=== PATIENT | female | born 1940 | race Caucasian/White ===

== ENCOUNTER 2019-06-26 02:39 | Inpatient (IN) ==
[2019-06-26] MEDS ORDERED: Nitroglycerin 0.4 MG TAB.SUBL SL PRN (02:44)
[2019-06-26] MEDS: Aspirin 81 MG TAB.CHEW PO ONE ×2 (03:01→06:16)
[2019-06-26 03:34] LABS: Basophils # 0.1 K/mcL (0.0-0.2); Basophils % 0.4 %; Eosinophils % 0.3 %; Hematocrit 40.4 % (35.3-44.9); Hemoglobin 13.1 g/dL (11.5-15.4); Immature Granulocytes % 0.4 % (0-4); Lymphocytes # 0.9 K/mcL (0.6-4.6); Lymphocytes % 7.8 %; Mean Corpuscular HGB Conc 32.4 g/dL (31.6-35.5); Mean Corpuscular Hemoglobin 27.8 pg (28.0-33.3); Mean Corpuscular Volume 85.6 fL (83.0-100.0); Mean Platelet Volume 10.3 fL (9.4-12.4); Monocytes # 0.4 K/mcL (0.0-1.3); Monocytes % 3.2 %; Neutrophils # 10.3 K/mcL (1.6-8.9); Platelet Count 340 K/mcL (140-400); Red Blood Count 4.72 M/mcL (3.82-4.97); Segmented Neutrophils % 87.9 %; White Blood Count 11.7 K/mcL (4.3-11.1)
[2019-06-26 03:39] LABS: Prothrombin Time 11.2 Seconds (9.4-12.1)
[2019-06-26 03:42] LABS: Activated Partial Thrombo Time 54.2 Seconds (26.0-36.0)
[2019-06-26 03:55] LABS: Calcium 9.9 mg/dL (8.6-10.3); Potassium 4.8 mEq/L (3.5-5.1)
[2019-06-26 04:08] LABS: Troponin I 0.06 ng/mL (< 0.04)
[2019-06-26] MEDS ORDERED: 0.9 % Sodium Chloride 1,000 ML IVC ONE (04:10)
[2019-06-26] MEDS ORDERED: Ondansetron ODT 4 MG TAB.RAPDIS SL PRN (07:56)
[2019-06-26] MEDS ORDERED: Ondansetron 4 MG/2 ML VIAL IVP PRN (07:56)
[2019-06-26] MEDS ORDERED: Naloxone 0.4 MG/ML INJ IVP PRN (07:56)
[2019-06-26] MEDS ORDERED: *HR* Heparin 5,000 UNIT/ML VIAL IVP ONE (12:17)
[2019-06-26] MEDS ORDERED: *HR* Heparin 5,000 UNIT/ML VIAL IVP PRN ×2 (12:17)
[2019-06-26] MEDS ORDERED: *HR* HYDROcodone/Acet 5/325 mg TABLET PO PRN (12:19)
[2019-06-26] MEDS ORDERED: Ringers Solution, Lactated 1,000 ML IVC ONE (12:21)
[2019-06-26] MEDS ORDERED: IRBESARTAN 300 MG PO SCH (12:30)
[2019-06-26] MEDS ORDERED: D5% in Water 1,000 ML IVC PRN (12:32)
[2019-06-26] MEDS ORDERED: Dextrose Gel 15 GM/37.5 ML TUBE PO PRN (12:32)
[2019-06-26] MEDS: Insulin LISPRO 300 UNITS/3 ML VIAL SQ SCH ×3 (13:08→21:43)
[2019-06-26 13:23] LABS: Hematocrit 35.9 % (35.3-44.9); Hemoglobin 11.7 g/dL (11.5-15.4); Mean Corpuscular HGB Conc 32.6 g/dL (31.6-35.5); Mean Corpuscular Hemoglobin 27.5 pg (28.0-33.3); Mean Corpuscular Volume 84.5 fL (83.0-100.0); Mean Platelet Volume 10.5 fL (9.4-12.4); Platelet Count 317 K/mcL (140-400); Red Blood Count 4.25 M/mcL (3.82-4.97); White Blood Count 8.4 K/mcL (4.3-11.1)
[2019-06-26 13:29] LABS: Prothrombin Time 11.3 Seconds (9.4-12.1)
[2019-06-26] MEDS: Aspirin 81 MG TAB.CHEW PO SCH (13:40)
[2019-06-26] MEDS: Heparin 25,000 UNIT/250 ML D5W 25,000 UNIT/250 ML IV.SOLN IVC SCH (13:41)
[2019-06-26 13:42] LABS: Chol/HDL Ratio 3.7 (0-4.9)
[2019-06-27 01:55] LABS: Basophils # 0.1 K/mcL (0.0-0.2); Basophils % 0.6 %; Eosinophils # 0.2 K/mcL (0.0-0.6); Eosinophils % 2.3 %; Hematocrit 36.2 % (35.3-44.9); Hemoglobin 11.3 g/dL (11.5-15.4); Immature Granulocytes % 0.4 % (0-4); Lymphocytes # 2.2 K/mcL (0.6-4.6); Lymphocytes % 26.1 %; Mean Corpuscular HGB Conc 31.2 g/dL (31.6-35.5); Mean Corpuscular Hemoglobin 27.2 pg (28.0-33.3); Mean Platelet Volume 10.9 fL (9.4-12.4); Monocytes # 0.6 K/mcL (0.0-1.3); Monocytes % 7.2 %; Neutrophils # 5.2 K/mcL (1.6-8.9); Platelet Count 295 K/mcL (140-400); Red Blood Count 4.16 M/mcL (3.82-4.97); Red Cell Distribution Width 15.1 % (11.5-14.5); Segmented Neutrophils % 63.4 %; White Blood Count 8.2 K/mcL (4.3-11.1)
[2019-06-27 02:15] LABS: Calcium 9.4 mg/dL (8.6-10.3)
[2019-06-27] MEDS ORDERED: Ringers Solution, Lactated 500 ML IVC ONE ×2 (07:36→17:45)
[2019-06-27] MEDS: Insulin LISPRO 300 UNITS/3 ML VIAL SQ SCH ×4 (08:13→21:40)
[2019-06-27] MEDS: amLODIPine 5 MG TABLET PO SCH (08:19)
[2019-06-27] MEDS: Aspirin 81 MG TAB.CHEW PO SCH (08:20)
[2019-06-27 08:32] LABS: Estimated Average Glucose 189 mg/dl
[2019-06-27] MEDS: Heparin 25,000 UNIT/250 ML D5W 25,000 UNIT/250 ML IV.SOLN IVC SCH (10:04)
[2019-06-27] MEDS ORDERED: Ringers Solution, Lactated 1,000 ML IVC ONE (17:48)
[2019-06-27 22:03] LABS: Basophils # 0.1 K/mcL (0.0-0.2); Basophils % 0.5 %; Eosinophils # 0.2 K/mcL (0.0-0.6); Eosinophils % 1.6 %; Hematocrit 35.5 % (35.3-44.9); Hemoglobin 11.5 g/dL (11.5-15.4); Immature Granulocytes % 0.5 % (0-4); Lymphocytes # 1.8 K/mcL (0.6-4.6); Lymphocytes % 16.5 %; Mean Corpuscular HGB Conc 32.4 g/dL (31.6-35.5); Mean Corpuscular Hemoglobin 27.3 pg (28.0-33.3); Mean Corpuscular Volume 84.1 fL (83.0-100.0); Mean Platelet Volume 10.6 fL (9.4-12.4); Monocytes # 0.6 K/mcL (0.0-1.3); Monocytes % 5.6 %; Neutrophils # 8.3 K/mcL (1.6-8.9); Platelet Count 325 K/mcL (140-400); Red Blood Count 4.22 M/mcL (3.82-4.97); Segmented Neutrophils % 75.3 %; White Blood Count 11.1 K/mcL (4.3-11.1)
[2019-06-27] MEDS ORDERED: Ringers Solution, Lactated 1,000 ML ONE (23:41)
[2019-06-27] MEDS ORDERED: Ringers Solution, Lactated 1,000 ML IVC SCH (23:45)
[2019-06-28 06:48] LABS: Basophils # 0.1 K/mcL (0.0-0.2); Basophils % 0.7 %; Eosinophils # 0.2 K/mcL (0.0-0.6); Eosinophils % 2.2 %; Hemoglobin 11.3 g/dL (11.5-15.4); Immature Granulocytes % 0.3 % (0-4); Lymphocytes # 1.9 K/mcL (0.6-4.6); Lymphocytes % 19.7 %; Mean Corpuscular HGB Conc 31.4 g/dL (31.6-35.5); Mean Corpuscular Hemoglobin 27.4 pg (28.0-33.3); Mean Corpuscular Volume 87.4 fL (83.0-100.0); Mean Platelet Volume 10.9 fL (9.4-12.4); Monocytes # 0.6 K/mcL (0.0-1.3); Monocytes % 6.3 %; Platelet Count 260 K/mcL (140-400); Red Blood Count 4.12 M/mcL (3.82-4.97); Red Cell Distribution Width 15.3 % (11.5-14.5); Segmented Neutrophils % 70.8 %; White Blood Count 9.8 K/mcL (4.3-11.1)
[2019-06-28 07:12] LABS: BUN/Creatinine Ratio 22 (6-26); Blood Urea Nitrogen 21 mg/dL (8-23); Carbon Dioxide 25 mEq/L (23-29); Chloride 104 mEq/L (98-107); Glucose 124 mg/dL (70-105); Osmolality,Calculated 294 (280-300); Sodium 140 mEq/L (136-145); eGFR For African Americans > 60 (> 60); eGFR For Non-African Americans 57 (> 60)
[2019-06-28] MEDS: amLODIPine 5 MG TABLET PO SCH (10:00)
[2019-06-28] MEDS: Insulin LISPRO 300 UNITS/3 ML VIAL SQ SCH ×4 (10:00→21:27)
[2019-06-28] MEDS: Aspirin 81 MG TAB.CHEW PO SCH (10:00)
[2019-06-28] MEDS: Heparin 25,000 UNIT/250 ML D5W 25,000 UNIT/250 ML IV.SOLN IVC SCH (12:36)
[2019-06-28] MEDS ORDERED: Heparin 1,000 UNITS/500 mL 500 ML ONE (13:38)
[2019-06-28] MEDS ORDERED: 0.9 % Sodium Chloride 1,000 ML ONE (13:38)
[2019-06-28] MEDS ORDERED: *HR* Heparin 10,000 UNIT/10 ML VIAL ONE (13:38)
[2019-06-28] MEDS ORDERED: ISOVUE-370 200 ML INFUS..BTL ONE (13:39)
[2019-06-28] MEDS ORDERED: Nitroglycerin 1,000 MCG/10 ML VIAL IV ONE (13:39)
[2019-06-29 05:50] LABS: BUN/Creatinine Ratio 17 (6-26); Blood Urea Nitrogen 16 mg/dL (8-23); Calcium 9.1 mg/dL (8.6-10.3); Carbon Dioxide 31 mEq/L (23-29); Chloride 104 mEq/L (98-107); Glucose 168 mg/dL (70-105); Osmolality,Calculated 299 (280-300); Potassium 3.7 mEq/L (3.5-5.1); Sodium 142 mEq/L (136-145); eGFR For African Americans > 60 (> 60); eGFR For Non-African Americans 57 (> 60)
[2019-06-29 08:56] LABS: Hematocrit 32.4 % (35.3-44.9); Hemoglobin 10.7 g/dL (11.5-15.4); Mean Corpuscular Hemoglobin 27.9 pg (28.0-33.3); Mean Corpuscular Volume 84.6 fL (83.0-100.0); Mean Platelet Volume 10.6 fL (9.4-12.4); Platelet Count 282 K/mcL (140-400); Red Blood Count 3.83 M/mcL (3.82-4.97); Red Cell Distribution Width 15.1 % (11.5-14.5); White Blood Count 8.4 K/mcL (4.3-11.1)
[2019-06-29] MEDS: Aspirin 81 MG TAB.CHEW PO SCH (09:42)
[2019-06-29] MEDS: amLODIPine 5 MG TABLET PO SCH (09:42)
[2019-06-29] MEDS: Insulin LISPRO 300 UNITS/3 ML VIAL SQ SCH ×4 (09:43→20:50)
[2019-06-29] MEDS ORDERED: *HR* Heparin 10,000 UNIT/10 ML VIAL ONE ×2 (11:37→12:57)
[2019-06-29] MEDS ORDERED: ISOVUE-370 200 ML INFUS..BTL ONE (11:38)
[2019-06-29] MEDS ORDERED: Heparin 1,000 UNITS/500 mL 500 ML ONE (11:38)
[2019-06-29] MEDS ORDERED: Nitroglycerin 1,000 MCG/10 ML VIAL IV ONE ×2 (11:38→11:41)
[2019-06-29] MEDS ORDERED: 0.9 % Sodium Chloride 1,000 ML ONE (11:38)
[2019-06-29] MEDS ORDERED: 0.9 % Sodium Chloride 500 ML IVC ONE (11:42)
[2019-06-29] MEDS ORDERED: *HR* FentaNYL (PF) 100 MCG/2 ML VIAL ONE (11:50)
[2019-06-29] MEDS ORDERED: Verapamil 5 MG/2 ML VIAL ONE (11:50)
[2019-06-29] MEDS ORDERED: *HR* Midazolam HCl 2 MG/2 ML VIAL ONE (11:50)
[2019-06-30 06:44] LABS: BUN/Creatinine Ratio 20 (6-26); Blood Urea Nitrogen 19 mg/dL (8-23); Calcium 8.7 mg/dL (8.6-10.3); Carbon Dioxide 28 mEq/L (23-29); Chloride 104 mEq/L (98-107); Glucose 175 mg/dL (70-105); Osmolality,Calculated 301 (280-300); Potassium 3.8 mEq/L (3.5-5.1); Sodium 142 mEq/L (136-145); eGFR For African Americans > 60 (> 60); eGFR For Non-African Americans 57 (> 60)
[2019-06-30 07:36] VITALS: BP 127/67
[2019-06-30] MEDS: Insulin LISPRO 300 UNITS/3 ML VIAL SQ SCH (09:46)
[2019-06-30] MEDS: Aspirin 81 MG TAB.CHEW PO SCH (09:46)
[2019-06-30] MEDS: amLODIPine 5 MG TABLET PO SCH (09:46)
== END 2019-06-30 10:26 | disposition home or self-care (01) | DRG 246 ==
LOC: 2ANU 02:39 → EMEROOARM 02:39 → SUATTDRO 06:10 → 2ANU 06:29
PROVIDERS: ADMIT Family Medicine; ATTEND Internal Medicine

== ENCOUNTER 2019-08-09 11:02 | Inpatient (IN) ==
[2019-08-09 12:34] LABS: Basophils % 0.7 %; Eosinophils % 1.4 %; Hematocrit 26.5 % (35.3-44.9); Hemoglobin 8.5 g/dL (11.5-15.4); Immature Granulocytes % 0.3 % (0-4); Lymphocytes # 0.1 K/mcL (0.6-4.6); Lymphocytes % 2.7 %; Mean Corpuscular HGB Conc 32.1 g/dL (31.6-35.5); Mean Corpuscular Hemoglobin 27.4 pg (28.0-33.3); Mean Corpuscular Volume 85.5 fL (83.0-100.0); Mean Platelet Volume 11.3 fL (9.4-12.4); Monocytes # 0.2 K/mcL (0.0-1.3); Monocytes % 8.2 %; Neutrophils # 2.5 K/mcL (1.6-8.9); Platelet Count 129 K/mcL (140-400); Red Cell Distribution Width 17.2 % (11.5-14.5); Segmented Neutrophils % 86.7 %; White Blood Count 2.9 K/mcL (4.3-11.1)
[2019-08-09 13:02] LABS: BUN/Creatinine Ratio 28 (6-26); Blood Urea Nitrogen 45 mg/dL (8-23); Calcium 9.1 mg/dL (8.6-10.3); Carbon Dioxide 22 mEq/L (23-29); Chloride 112 mEq/L (98-107); Glucose 133 mg/dL (70-105); Osmolality,Calculated 309 (280-300); Potassium 4.9 mEq/L (3.5-5.1); Sodium 143 mEq/L (136-145); Troponin I < 0.03 ng/mL (< 0.04); eGFR For African Americans 38 (> 60); eGFR For Non-African Americans 31 (> 60)
[2019-08-09] MEDS ORDERED: Furosemide 40 MG/4 ML VIAL IVP ONE (13:35)
[2019-08-09] MEDS ORDERED: Naloxone 0.4 MG/ML INJ IVP PRN (15:20)
[2019-08-09] MEDS ORDERED: *HR* HYDROcodone/Acet 5/325 mg TABLET PO PRN (15:30)
[2019-08-09 16:16] LABS: INR 1.1; Prothrombin Time 12.9 Seconds (9.4-12.1)
[2019-08-09 16:24] LABS: Alanine Aminotransferase 24 Units/L (7-52); Albumin 3.4 g/dL (3.5-5.7); Albumin/Globulin Ratio 1.4 (1.1-2.2); Alkaline Phosphatase 80 Units/L (34-104); Aspartate Amino Transferase 34 Units/L (13-39); Bilirubin,Direct 0.1 mg/dL (0.0-0.2); Bilirubin,Indirect 0.3 mg/dL (0.0-1.0); Bilirubin,Total 0.4 mg/dL (0.3-1.0); Globulin 2.5 g/dL (2.4-3.5); Thyroid Stimulating Hormone 5.636 mcIU/mL (0.340-5.600); Total Protein 5.9 g/dL (6.4-8.9)
[2019-08-09] MEDS: Insulin LISPRO 300 UNITS/3 ML VIAL SQ SCH ×2 (18:40→21:35)
[2019-08-09] MEDS: *HR* Heparin 5,000 UNIT/ML VIAL SQ SCH (18:51)
[2019-08-09 19:25] LABS: Red Cell Distribution Width 17.1 % (11.5-14.5); Reticulocyte % 1.4 % (1.6-2.8)
[2019-08-09 19:26] LABS: Eosinophils # 0.1 K/mcL (0.0-0.6); Hematocrit 26.2 % (35.3-44.9); Hemoglobin 8.5 g/dL (11.5-15.4); Immature Reticulocyte % 11.7 % (11.0-38.0); Mean Corpuscular HGB Conc 32.4 g/dL (31.6-35.5); Mean Corpuscular Hemoglobin 27.2 pg (28.0-33.3); Mean Platelet Volume 11.5 fL (9.4-12.4); Monocytes # 0.2 K/mcL (0.0-1.3); Platelet Count 142 K/mcL (140-400); Red Blood Count 3.12 M/mcL (3.82-4.97); Retculocyte # 0.04 M/mcL (0.05-0.10); White Blood Count 1.9 K/mcL (4.3-11.1)
[2019-08-09 19:41] LABS: % Iron Saturation 18 % (15-50); Iron 59 mcg/dL (50-170); Lactate Dehydrogenase 583 Units/L (140-271); Transferrin 237 mg/dL (203-362)
[2019-08-09 19:55] LABS: Anisocytosis 1+ (Not Present); Microcytosis Present (Not Present); Neutrophils # 1.6 K/mcL (1.6-8.9); Platelet Estimate Normal (Normal); Poikilocytosis 1+ (Not Present)
[2019-08-09 19:59] LABS: Ferritin 303 ng/mL (10-120)
[2019-08-09 20:09] LABS: Folate > 22.3 ng/mL (3.0-16.0); Vitamin B12 674 pg/mL (250-1100)
[2019-08-10 02:52] LABS: Eosinophils # 0.1 K/mcL (0.0-0.6); Eosinophils % 2.9 %; Hematocrit 24.1 % (35.3-44.9); Hemoglobin 7.5 g/dL (11.5-15.4); Immature Granulocytes % 0.5 % (0-4); Lymphocytes # 0.1 K/mcL (0.6-4.6); Lymphocytes % 2.9 %; Mean Corpuscular HGB Conc 31.1 g/dL (31.6-35.5); Mean Corpuscular Hemoglobin 27.2 pg (28.0-33.3); Mean Corpuscular Volume 87.3 fL (83.0-100.0); Mean Platelet Volume 12.2 fL (9.4-12.4); Monocytes # 0.3 K/mcL (0.0-1.3); Monocytes % 12.4 %; Neutrophils # 1.7 K/mcL (1.6-8.9); Platelet Count 113 K/mcL (140-400); Red Blood Count 2.76 M/mcL (3.82-4.97); Red Cell Distribution Width 17.1 % (11.5-14.5); Segmented Neutrophils % 80.3 %; White Blood Count 2.1 K/mcL (4.3-11.1)
[2019-08-10 03:09] LABS: Calcium 8.8 mg/dL (8.6-10.3); Potassium 4.5 mEq/L (3.5-5.1)
[2019-08-10 03:52] LABS: Platelet Estimate Decreased (Normal)
[2019-08-10 03:53] LABS: Anisocytosis 1+ (Not Present); Microcytosis Present (Not Present)
[2019-08-10] MEDS: *HR* Heparin 5,000 UNIT/ML VIAL SQ SCH ×2 (05:34→16:45)
[2019-08-10] MEDS: Insulin LISPRO 300 UNITS/3 ML VIAL SQ SCH ×4 (07:58→20:28)
[2019-08-10] MEDS: Ascorbic Acid 500 MG TABLET PO SCH (08:48)
[2019-08-10] MEDS: amLODIPine 5 MG TABLET PO SCH (08:48)
[2019-08-10] MEDS: Aspirin 81 MG TAB.CHEW PO SCH (08:48)
[2019-08-10] MEDS: Furosemide 40 MG/4 ML VIAL IVP SCH ×2 (08:51→16:40)
[2019-08-10 16:52] LABS: Hematocrit 24.7 % (35.3-44.9); Hemoglobin 8.1 g/dL (11.5-15.4)
[2019-08-11] MEDS: *HR* Heparin 5,000 UNIT/ML VIAL SQ SCH ×2 (05:05→18:46)
[2019-08-11] MEDS: amLODIPine 5 MG TABLET PO SCH (08:49)
[2019-08-11] MEDS: Aspirin 81 MG TAB.CHEW PO SCH (08:49)
[2019-08-11] MEDS: Ascorbic Acid 500 MG TABLET PO SCH (08:50)
[2019-08-11] MEDS: Furosemide 40 MG/4 ML VIAL IVP SCH ×2 (08:50→18:45)
[2019-08-11] MEDS: Insulin LISPRO 300 UNITS/3 ML VIAL SQ SCH ×4 (08:50→20:36)
[2019-08-11 09:23] LABS: Basophils % 1.4 %; Immature Granulocytes % 1.4 % (0-4); Mean Corpuscular Hemoglobin 27.7 pg (28.0-33.3)
[2019-08-11 09:25] LABS: Eosinophils # 0.1 K/mcL (0.0-0.6); Eosinophils % 3.4 %; Hematocrit 25.1 % (35.3-44.9); Hemoglobin 7.9 g/dL (11.5-15.4); Lymphocytes # 0.1 K/mcL (0.6-4.6); Lymphocytes % 5.5 %; Mean Corpuscular HGB Conc 31.5 g/dL (31.6-35.5); Mean Corpuscular Volume 88.1 fL (83.0-100.0); Mean Platelet Volume 11.6 fL (9.4-12.4); Monocytes # 0.2 K/mcL (0.0-1.3); Monocytes % 13.8 %; Neutrophils # 1.1 K/mcL (1.6-8.9); Red Blood Count 2.85 M/mcL (3.82-4.97); Red Cell Distribution Width 17.7 % (11.5-14.5); Segmented Neutrophils % 74.5 %; White Blood Count 1.5 K/mcL (4.3-11.1)
[2019-08-11 09:31] LABS: Platelet Count 94 K/mcL (140-400)
[2019-08-11 09:41] LABS: Calcium 8.8 mg/dL (8.6-10.3)
[2019-08-11 09:45] LABS: Large Platelets Present (Not Present); Platelet Estimate Decreased (Normal)
[2019-08-11 12:40] LABS: Bilirubin,Urine Negative (Negative); Blood,Urine Small (Negative); Clarity,Urine Clear (Clear); Color,Urine Yellow (Yellow); Glucose,Urine (UA) >=1000 mg/dL (Normal); Ketones,Urine Negative (Negative); Leukocyte Esterase,Urine Negative (Negative); Nitrite,Urine Negative (Negative); Protein,Urine 100 mg/dL (Neg-Trace); Specific Gravity,Urine 1.016 (1.010-1.025); Urobilinogen,Urine Normal (Normal)
[2019-08-11 12:44] LABS: Hyaline Casts,Urine None Seen per lpf (None-Few); Squamous Epithelial Cell,Urine Many per lpf (None-Few)
[2019-08-11 13:17] LABS: RBC,Urine 0-3 per hpf (0-3); Yeast,Urine Many per hpf (None Seen)
[2019-08-11 13:18] LABS: Bacteria,Urine Few per hpf (None-Few)
[2019-08-11] MEDS ORDERED: 0.9 % Sodium Chloride 250 ML ONE (14:01)
[2019-08-12 03:06] LABS: Eosinophils % 2.7 %; Red Cell Distribution Width 17.3 % (11.5-14.5)
[2019-08-12 03:08] LABS: Basophils % 0.5 %; Eosinophils # 0.1 K/mcL (0.0-0.6); Hematocrit 26.1 % (35.3-44.9); Hemoglobin 8.4 g/dL (11.5-15.4); Immature Granulocytes % 1.8 % (0-4); Immature Platelets 4.5 % (1.1-6.1); Lymphocytes # 0.1 K/mcL (0.6-4.6); Lymphocytes % 2.7 %; Mean Corpuscular HGB Conc 32.2 g/dL (31.6-35.5); Mean Corpuscular Hemoglobin 27.9 pg (28.0-33.3); Mean Corpuscular Volume 86.7 fL (83.0-100.0); Mean Platelet Volume 11.8 fL (9.4-12.4); Monocytes # 0.4 K/mcL (0.0-1.3); Monocytes % 15.8 %; Neutrophils # 1.7 K/mcL (1.6-8.9); Red Blood Count 3.01 M/mcL (3.82-4.97); Segmented Neutrophils % 76.5 %; White Blood Count 2.2 K/mcL (4.3-11.1)
[2019-08-12 03:14] LABS: Calcium 8.6 mg/dL (8.6-10.3); Potassium 4.5 mEq/L (3.5-5.1)
[2019-08-12 03:15] LABS: Platelet Count 81 K/mcL (140-400)
[2019-08-12 04:14] LABS: Anisocytosis 1+ (Not Present); Platelet Estimate Slight Decrease (Normal)
[2019-08-12] MEDS: *HR* Heparin 5,000 UNIT/ML VIAL SQ SCH ×2 (05:10→16:52)
[2019-08-12] MEDS: Ascorbic Acid 500 MG TABLET PO SCH (08:13)
[2019-08-12] MEDS: Furosemide 40 MG/4 ML VIAL IVP SCH ×2 (08:13→16:52)
[2019-08-12] MEDS: amLODIPine 5 MG TABLET PO SCH (08:13)
[2019-08-12] MEDS: Aspirin 81 MG TAB.CHEW PO SCH (08:13)
[2019-08-12] MEDS: Insulin LISPRO 300 UNITS/3 ML VIAL SQ SCH ×4 (08:14→20:41)
[2019-08-12] MEDS ORDERED: *HR* Midazolam HCl 2 MG/2 ML VIAL IVP ONE (11:27)
[2019-08-12] MEDS ORDERED: *HR* FentaNYL (PF) 100 MCG/2 ML VIAL IVP ONE (11:27)
[2019-08-12 21:20] LABS: Kappa Qnt Free Light Chains 6.66 mg/dL (0.33-1.94); Lambda Qnt Free Light Chains 3.32 mg/dL (0.57-2.63)
[2019-08-13 05:03] LABS: Calcium 8.5 mg/dL (8.6-10.3); Potassium 3.8 mEq/L (3.5-5.1)
[2019-08-13 05:04] LABS: Lymphocytes % 4.3 %; Red Cell Distribution Width 17.7 % (11.5-14.5)
[2019-08-13 05:07] LABS: Basophils % 1.2 %; Eosinophils # 0.1 K/mcL (0.0-0.6); Eosinophils % 6.2 %; Hemoglobin 7.9 g/dL (11.5-15.4); Immature Granulocytes % 1.2 % (0-4); Lymphocytes # 0.1 K/mcL (0.6-4.6); Mean Corpuscular HGB Conc 32.9 g/dL (31.6-35.5); Mean Corpuscular Volume 85.1 fL (83.0-100.0); Mean Platelet Volume 12.7 fL (9.4-12.4); Monocytes # 0.3 K/mcL (0.0-1.3); Monocytes % 16.1 %; Neutrophils # 1.1 K/mcL (1.6-8.9); Red Blood Count 2.82 M/mcL (3.82-4.97); White Blood Count 1.6 K/mcL (4.3-11.1)
[2019-08-13] MEDS: *HR* Heparin 5,000 UNIT/ML VIAL SQ SCH ×2 (05:21→17:21)
[2019-08-13 05:27] LABS: Platelet Count 74 K/mcL (140-400)
[2019-08-13 06:36] LABS: Anisocytosis 1+ (Not Present)
[2019-08-13 06:37] LABS: Microcytosis Present (Not Present); Platelet Estimate Decreased (Normal)
[2019-08-13] MEDS ORDERED: Furosemide 20 MG/2 ML VIAL IVP SCH (09:00)
[2019-08-13] MEDS: Ascorbic Acid 500 MG TABLET PO SCH (09:17)
[2019-08-13] MEDS: Insulin LISPRO 300 UNITS/3 ML VIAL SQ SCH ×4 (09:17→20:04)
[2019-08-13] MEDS: amLODIPine 5 MG TABLET PO SCH (09:17)
[2019-08-13] MEDS: Aspirin 81 MG TAB.CHEW PO SCH (09:17)
[2019-08-13] MEDS: Furosemide 40 MG/4 ML VIAL IVP SCH (09:47)
[2019-08-13 14:45] LABS: Hematocrit 25.4 % (35.3-44.9); Hemoglobin 8.3 g/dL (11.5-15.4)
[2019-08-13] MEDS: Furosemide 20 MG/2 ML VIAL IVP SCH (17:09)
[2019-08-14 00:16] LABS: Alpha 2 Globulin (PEP) 0.82 g/dL (0.48-1.05); Beta Globulin (PEP) 0.72 g/dL (0.48-1.10)
[2019-08-14 02:22] LABS: Hematocrit 23.7 % (35.3-44.9); Hemoglobin 7.9 g/dL (11.5-15.4); Immature Granulocytes % 1.1 % (0-4); Mean Corpuscular HGB Conc 33.3 g/dL (31.6-35.5); Mean Corpuscular Hemoglobin 28.3 pg (28.0-33.3); Mean Corpuscular Volume 84.9 fL (83.0-100.0); Red Blood Count 2.79 M/mcL (3.82-4.97); Red Cell Distribution Width 17.9 % (11.5-14.5); Segmented Neutrophils % 72.1 %; White Blood Count 1.8 K/mcL (4.3-11.1)
[2019-08-14 02:23] LABS: Basophils % 1.1 %; Eosinophils # 0.1 K/mcL (0.0-0.6); Eosinophils % 7.4 %; Lymphocytes # 0.1 K/mcL (0.6-4.6); Lymphocytes % 4.6 %; Monocytes # 0.3 K/mcL (0.0-1.3); Monocytes % 13.7 %; Neutrophils # 1.3 K/mcL (1.6-8.9); Platelet Count 72 K/mcL (140-400)
[2019-08-14 02:34] LABS: Calcium 8.4 mg/dL (8.6-10.3); Potassium 3.9 mEq/L (3.5-5.1)
[2019-08-14 02:37] LABS: Anisocytosis 1+ (Not Present); Hypochromasia Present (Not Present); Large Platelets Present (Not Present); Microcytosis Present (Not Present); Platelet Estimate Decreased (Normal); Poikilocytosis 1+ (Not Present); Polychromasia 1+ (Not Present)
[2019-08-14 04:31] LABS: IFE Reflexed IFE Done; Immunoglobulin A 217 mg/dL (68-408)
[2019-08-14 04:32] LABS: Immunoglobulin G 828 mg/dL (768-1632); Immunoglobulin M 56 mg/dL (35-263)
[2019-08-14] MEDS: amLODIPine 5 MG TABLET PO SCH (08:20)
[2019-08-14] MEDS: Aspirin 81 MG TAB.CHEW PO SCH (08:21)
[2019-08-14] MEDS: Furosemide 20 MG/2 ML VIAL IVP SCH ×2 (08:21→19:58)
[2019-08-14] MEDS: Ascorbic Acid 500 MG TABLET PO SCH (08:21)
[2019-08-14] MEDS: Insulin LISPRO 300 UNITS/3 ML VIAL SQ SCH ×4 (08:27→20:53)
[2019-08-14] MEDS ORDERED: 0.9 % Sodium Chloride 250 ML ONE (15:08)
[2019-08-15 05:34] LABS: Basophils % 0.5 %
[2019-08-15 05:36] LABS: Eosinophils # 0.2 K/mcL (0.0-0.6); Eosinophils % 7.9 %; Immature Granulocytes % 1.5 % (0-4); Immature Platelets 4.8 % (1.1-6.1); Lymphocytes # 0.1 K/mcL (0.6-4.6); Lymphocytes % 3.4 %; Mean Corpuscular HGB Conc 34.6 g/dL (31.6-35.5); Mean Corpuscular Hemoglobin 29.9 pg (28.0-33.3); Mean Corpuscular Volume 86.4 fL (83.0-100.0); Mean Platelet Volume 11.2 fL (9.4-12.4); Monocytes # 0.3 K/mcL (0.0-1.3); Monocytes % 14.3 %; Neutrophils # 1.5 K/mcL (1.6-8.9); Red Blood Count 3.01 M/mcL (3.82-4.97); Red Cell Distribution Width 18.3 % (11.5-14.5); Segmented Neutrophils % 72.4 %
[2019-08-15 05:45] LABS: Platelet Count 48 K/mcL (140-400)
[2019-08-15 05:55] LABS: Calcium 8.8 mg/dL (8.6-10.3)
[2019-08-15] MEDS: Furosemide 20 MG/2 ML VIAL IVP SCH (08:41)
[2019-08-15] MEDS: Ascorbic Acid 500 MG TABLET PO SCH (08:43)
[2019-08-15] MEDS: Aspirin 81 MG TAB.CHEW PO SCH (08:43)
[2019-08-15] MEDS: amLODIPine 5 MG TABLET PO SCH (08:43)
[2019-08-15] MEDS: Insulin LISPRO 300 UNITS/3 ML VIAL SQ SCH ×4 (08:44→20:42)
[2019-08-15] MEDS ORDERED: Furosemide 20 MG TABLET PO SCH (09:00)
[2019-08-15] MEDS ORDERED: Furosemide 20 MG/2 ML VIAL IVP SCH (17:00)
[2019-08-15] MEDS: Furosemide 40 MG TABLET PO SCH (17:43)
[2019-08-16 06:09] LABS: Basophils % 1.2 %; Eosinophils # 0.1 K/mcL (0.0-0.6); Eosinophils % 6.6 %; Hematocrit 27.5 % (35.3-44.9); Hemoglobin 8.7 g/dL (11.5-15.4); Immature Granulocytes % 1.2 % (0-4); Lymphocytes # 0.1 K/mcL (0.6-4.6); Lymphocytes % 7.8 %; Mean Corpuscular HGB Conc 31.6 g/dL (31.6-35.5); Mean Corpuscular Hemoglobin 28.6 pg (28.0-33.3); Mean Corpuscular Volume 90.5 fL (83.0-100.0); Mean Platelet Volume 11.1 fL (9.4-12.4); Monocytes # 0.2 K/mcL (0.0-1.3); Monocytes % 13.2 %; Neutrophils # 1.2 K/mcL (1.6-8.9); Red Blood Count 3.04 M/mcL (3.82-4.97); Red Cell Distribution Width 19.4 % (11.5-14.5); White Blood Count 1.7 K/mcL (4.3-11.1)
[2019-08-16 06:12] LABS: Platelet Count 63 K/mcL (140-400)
[2019-08-16 06:30] LABS: Albumin 3.3 g/dL (3.5-5.7); Albumin/Globulin Ratio 1.2 (1.1-2.2); Calcium 8.8 mg/dL (8.6-10.3); Globulin 2.7 g/dL (2.4-3.5); Potassium 4.1 mEq/L (3.5-5.1)
[2019-08-16 06:32] LABS: Calcium 8.9 mg/dL (8.6-10.3); Potassium 4.2 mEq/L (3.5-5.1)
[2019-08-16 07:00] LABS: Anisocytosis 1+ (Not Present); Microcytosis Present (Not Present); Platelet Estimate Decreased (Normal); Poikilocytosis 1+ (Not Present)
[2019-08-16] MEDS: amLODIPine 5 MG TABLET PO SCH (08:11)
[2019-08-16] MEDS: Furosemide 40 MG TABLET PO SCH (08:11)
[2019-08-16] MEDS: Aspirin 81 MG TAB.CHEW PO SCH (08:12)
[2019-08-16] MEDS: Ascorbic Acid 500 MG TABLET PO SCH (08:12)
[2019-08-16] MEDS: Insulin LISPRO 300 UNITS/3 ML VIAL SQ SCH ×3 (08:12→17:01)
[2019-08-16] MEDS ORDERED: Insulin LISPRO 300 UNITS/3 ML VIAL SQ SCH (10:14)
[2019-08-16] MEDS ORDERED: Furosemide 40 MG/4 ML VIAL IVP ONE (14:59)
[2019-08-16] MEDS ORDERED: Insulin DETEMIR 100 UNIT/ML X5UNITS SQ SCH (21:00)
[2019-08-17 06:37] LABS: Basophils % 0.5 %; Eosinophils # 0.1 K/mcL (0.0-0.6); Eosinophils % 7.3 %; Hematocrit 25.5 % (35.3-44.9); Hemoglobin 8.3 g/dL (11.5-15.4); Immature Granulocytes % 0.5 % (0-4); Lymphocytes # 0.1 K/mcL (0.6-4.6); Lymphocytes % 6.3 %; Mean Corpuscular HGB Conc 32.5 g/dL (31.6-35.5); Mean Corpuscular Hemoglobin 29.1 pg (28.0-33.3); Mean Corpuscular Volume 89.5 fL (83.0-100.0); Monocytes # 0.3 K/mcL (0.0-1.3); Monocytes % 14.6 %; Neutrophils # 1.4 K/mcL (1.6-8.9); Red Blood Count 2.85 M/mcL (3.82-4.97); Red Cell Distribution Width 19.5 % (11.5-14.5); Segmented Neutrophils % 70.8 %; White Blood Count 1.9 K/mcL (4.3-11.1)
[2019-08-17 06:39] LABS: Platelet Count 74 K/mcL (140-400)
[2019-08-17 07:04] LABS: Albumin 3.3 g/dL (3.5-5.7); Albumin/Globulin Ratio 1.3 (1.1-2.2); Bilirubin,Total 0.7 mg/dL (0.3-1.0); Calcium 8.9 mg/dL (8.6-10.3); Globulin 2.5 g/dL (2.4-3.5); Potassium 3.9 mEq/L (3.5-5.1); Total Protein 5.8 g/dL (6.4-8.9)
[2019-08-17 07:10] VITALS: BP 172/69
[2019-08-17] MEDS: Aspirin 81 MG TAB.CHEW PO SCH (08:57)
[2019-08-17] MEDS: amLODIPine 5 MG TABLET PO SCH (08:57)
[2019-08-17] MEDS: Ascorbic Acid 500 MG TABLET PO SCH (08:58)
[2019-08-17] MEDS: Insulin LISPRO 300 UNITS/3 ML VIAL SQ SCH (08:58)
== END 2019-08-17 12:56 | disposition home health service (06) | DRG 987 ==
LOC: 3BNU 11:02 → EMEROOARM 11:02 → SUATTDRO 16:18 → 3BNU 17:50 → SUATTDRO 08-11 18:59
PROVIDERS: ADMIT Internal Medicine; ATTEND Internal Medicine

== ENCOUNTER 2019-08-21 00:25 | Observation (INO) ==
[2019-08-21] MEDS ORDERED: *HR* Dextrose 50 % in Water (Syg) 50 ML SYRINGE IVP ONE ×2 (00:45→00:48)
[2019-08-21] MEDS ORDERED: *HR* Dextrose 50 % in Water (Syg) 50 ML SYRINGE ONE ×2 (00:48→01:27)
[2019-08-21 00:58] LABS: Basophils % 0.3 %; Eosinophils # 0.1 K/mcL (0.0-0.6); Eosinophils % 1.9 %; Hematocrit 24.5 % (35.3-44.9); Immature Granulocytes % 0.6 % (0-4); Lymphocytes # 0.2 K/mcL (0.6-4.6); Lymphocytes % 3.1 %; Mean Corpuscular HGB Conc 32.7 g/dL (31.6-35.5); Mean Corpuscular Hemoglobin 29.3 pg (28.0-33.3); Mean Corpuscular Volume 89.7 fL (83.0-100.0); Mean Platelet Volume 11.1 fL (9.4-12.4); Monocytes # 0.5 K/mcL (0.0-1.3); Monocytes % 7.4 %; Platelet Count 162 K/mcL (140-400); Red Blood Count 2.73 M/mcL (3.82-4.97); Segmented Neutrophils % 86.7 %
[2019-08-21 01:00] LABS: Neutrophils # 5.6 K/mcL (1.6-8.9); White Blood Count 6.4 K/mcL (4.3-11.1)
[2019-08-21] MEDS ORDERED: D5% in 0.9% NACL 1,000 ML IVC SCH ×2 (01:00→02:24)
[2019-08-21 01:18] LABS: BUN/Creatinine Ratio 31 (6-26); Blood Urea Nitrogen 43 mg/dL (8-23); Calcium 8.7 mg/dL (8.6-10.3); Carbon Dioxide 22 mEq/L (23-29); Chloride 110 mEq/L (98-107); Ethanol < 10 mg/dL (Less than 10); Glucose 41 mg/dL (70-105); Osmolality,Calculated 300 (280-300); Potassium 3.8 mEq/L (3.5-5.1); Sodium 141 mEq/L (136-145); eGFR For African Americans 44 (> 60); eGFR For Non-African Americans 37 (> 60)
[2019-08-21 01:19] LABS: Troponin I < 0.03 ng/mL (< 0.04)
[2019-08-21] MEDS ORDERED: Furosemide 40 MG/4 ML VIAL IVP ONE (02:13)
[2019-08-21 04:31] LABS: Alanine Aminotransferase 16 Units/L (7-52); Albumin 3.4 g/dL (3.5-5.7); Albumin/Globulin Ratio 1.4 (1.1-2.2); Alkaline Phosphatase 70 Units/L (34-104); Aspartate Amino Transferase 30 Units/L (13-39); Bilirubin,Direct 0.1 mg/dL (0.0-0.2); Bilirubin,Indirect 0.3 mg/dL (0.0-1.0); Bilirubin,Total 0.4 mg/dL (0.3-1.0); Globulin 2.4 g/dL (2.4-3.5); Total Protein 5.8 g/dL (6.4-8.9)
[2019-08-21] MEDS ORDERED: *HR* Promethazine 25 MG/ML VIAL IVP PRN (07:35)
[2019-08-21] MEDS ORDERED: Naloxone 0.4 MG/ML INJ IVP PRN (07:35)
[2019-08-21] MEDS ORDERED: MOM Conc 10 ML UD.LIQ PO PRN (07:35)
[2019-08-21] MEDS ORDERED: Ondansetron 4 MG/2 ML VIAL IVP PRN (07:35)
[2019-08-21] MEDS ORDERED: Mag Hydrox/Al Hydrox/Simeth 30 ML UDC PO PRN (07:35)
[2019-08-21] MEDS ORDERED: Dextrose Gel 15 GM/37.5 ML TUBE PO PRN ×2 (07:37)
[2019-08-21] MEDS ORDERED: D5% in Water 1,000 ML IVC PRN (07:37)
[2019-08-21] MEDS ORDERED: *HR* Dextrose 50 % in Water (Syg) 50 ML SYRINGE IVP PRN (07:37)
[2019-08-21] MEDS ORDERED: Insulin LISPRO 300 UNITS/3 ML VIAL SQ SCH ×2 (11:30→21:00)
[2019-08-21 17:00] VITALS: BP 169/49
[2019-08-21] MEDS ORDERED: *HR* Heparin 5,000 UNIT/ML VIAL SQ SCH (18:00)
== END 2019-08-21 17:56 | disposition home or self-care (01) ==
LOC: CDU 00:25 → EMEROOARM 00:25 → CDU 04:45
PROVIDERS: ADMIT Internal Medicine; ATTEND Internal Medicine

== ENCOUNTER 2019-09-01 00:29 | Inpatient (IN) ==
[2019-09-01 00:54] LABS: Basophils % 0.6 %; Eosinophils # 0.1 K/mcL (0.0-0.6); Eosinophils % 2.3 %; Hematocrit 24.8 % (35.3-44.9); Hemoglobin 7.8 g/dL (11.5-15.4); Immature Granulocytes % 0.6 % (0-4); Lymphocytes # 0.3 K/mcL (0.6-4.6); Lymphocytes % 7.3 %; Mean Corpuscular HGB Conc 31.5 g/dL (31.6-35.5); Mean Corpuscular Hemoglobin 29.3 pg (28.0-33.3); Mean Corpuscular Volume 93.2 fL (83.0-100.0); Mean Platelet Volume 10.6 fL (9.4-12.4); Monocytes # 0.3 K/mcL (0.0-1.3); Monocytes % 7.3 %; Neutrophils # 2.8 K/mcL (1.6-8.9); Platelet Count 163 K/mcL (140-400); Red Blood Count 2.66 M/mcL (3.82-4.97); Red Cell Distribution Width 19.4 % (11.5-14.5); Segmented Neutrophils % 81.9 %; White Blood Count 3.4 K/mcL (4.3-11.1)
[2019-09-01 01:02] LABS: Bilirubin,Urine Small (Negative); Blood,Urine Small (Negative); Clarity,Urine Cloudy (Clear); Color,Urine Yellow (Yellow); Glucose,Urine (UA) >=1000 mg/dL (Normal); Ketones,Urine Negative (Negative); Leukocyte Esterase,Urine Trace (Negative); Nitrite,Urine Negative (Negative); PH,Urine 5.5 pH Units (5.0-8.0); Protein,Urine 100 mg/dL (Neg-Trace); Specific Gravity,Urine 1.026 (1.010-1.025); Urobilinogen,Urine Normal (Normal)
[2019-09-01 01:03] LABS: Bacteria,Urine Few per hpf (None-Few); Hyaline Casts,Urine Few per lpf (None-Few); Squamous Epithelial Cell,Urine Many per lpf (None-Few)
[2019-09-01 01:15] LABS: Albumin/Globulin Ratio 1.2 (1.1-2.2); Bilirubin,Total 0.4 mg/dL (0.3-1.0); Calcium 8.4 mg/dL (8.6-10.3); Globulin 2.6 g/dL (2.4-3.5); Potassium 4.9 mEq/L (3.5-5.1); Total Protein 5.6 g/dL (6.4-8.9)
[2019-09-01 01:16] LABS: Yeast,Urine Moderate per hpf (None Seen)
[2019-09-01 01:16] LABS: Troponin I 0.03 ng/mL (< 0.04)
[2019-09-01] MEDS ORDERED: Naloxone 0.4 MG/ML INJ IVP PRN (03:58)
[2019-09-01] MEDS ORDERED: Dextrose Gel 15 GM/37.5 ML TUBE PO PRN ×2 (04:20)
[2019-09-01] MEDS ORDERED: *HR* Dextrose 50 % in Water (Syg) 50 ML SYRINGE IVP PRN (04:20)
[2019-09-01] MEDS ORDERED: D5% in Water 1,000 ML IVC PRN (04:20)
[2019-09-01] MEDS ORDERED: Nitroglycerin 0.4 MG TAB.SUBL SL PRN (07:38)
[2019-09-01 08:12] LABS: Basophils % 0.7 %; Eosinophils # 0.1 K/mcL (0.0-0.6); Eosinophils % 3.4 %; Hematocrit 24.4 % (35.3-44.9); Hemoglobin 7.5 g/dL (11.5-15.4); Lymphocytes # 0.3 K/mcL (0.6-4.6); Lymphocytes % 8.5 %; Mean Corpuscular HGB Conc 30.7 g/dL (31.6-35.5); Mean Corpuscular Hemoglobin 29.3 pg (28.0-33.3); Mean Corpuscular Volume 95.3 fL (83.0-100.0); Mean Platelet Volume 10.7 fL (9.4-12.4); Monocytes # 0.3 K/mcL (0.0-1.3); Monocytes % 8.5 %; Neutrophils # 2.3 K/mcL (1.6-8.9); Platelet Count 138 K/mcL (140-400); Red Blood Count 2.56 M/mcL (3.82-4.97); Red Cell Distribution Width 19.2 % (11.5-14.5); Segmented Neutrophils % 77.9 %; White Blood Count 2.9 K/mcL (4.3-11.1)
[2019-09-01 08:30] LABS: Calcium 8.3 mg/dL (8.6-10.3); Potassium 4.6 mEq/L (3.5-5.1)
[2019-09-01] MEDS: Aspirin 81 MG TAB.CHEW PO SCH (08:32)
[2019-09-01] MEDS: Ascorbic Acid 500 MG TABLET PO SCH (08:32)
[2019-09-01] MEDS: Insulin LISPRO 300 UNITS/3 ML VIAL SQ SCH ×4 (08:34→21:37)
[2019-09-01] MEDS ORDERED: Furosemide 20 MG/2 ML VIAL IVP SCH (09:00)
[2019-09-01] MEDS ORDERED: Ipratropium/Albuterol Neb 3 ML IH PRN (10:42)
[2019-09-01] MEDS: Ipratropium/Albuterol Neb 3 ML IH SCH ×2 (15:57→22:29)
[2019-09-01] MEDS: cefTRIAXone 1,000 MG in Water for inj. (sterile) 10 ML IVPB SCH (17:18)
[2019-09-01] MEDS: Bumetanide 1 MG/4 ML VIAL IVP SCH (17:18)
[2019-09-01] MEDS: *HR* Ticagrelor 90 MG TABLET PO SCH (21:31)
[2019-09-01] MEDS: Insulin DETEMIR 100 UNIT/ML X5UNITS SQ SCH (21:37)
[2019-09-02 00:35] LABS: Magnesium 1.9 mg/dL (1.6-2.6); Phosphorous 2.9 mg/dL (2.7-4.5)
[2019-09-02 00:51] LABS: ABG Base Excess 5 mEq/L (-2 to 3); ABG HCO3 29 mEq/L (21-27); ABG Oxygen Saturation 96 % (95-98); ABG PCO2 39 mmHg (35-45); ABG PH 7.47 pH Units (7.32-7.45); ABG PO2 79 mmHg (85-104); ABG TCO2 30 mEq/L (20-26)
[2019-09-02] MEDS ORDERED: Levalbuterol Neb 1.25 MG/3 ML IH SCH (04:00)
[2019-09-02] MEDS: Ipratropium/Albuterol Neb 3 ML IH SCH (04:09)
[2019-09-02 04:39] LABS: Hematocrit 24.5 % (35.3-44.9); Hemoglobin 7.5 g/dL (11.5-15.4); Mean Corpuscular HGB Conc 30.6 g/dL (31.6-35.5); Mean Corpuscular Hemoglobin 29.3 pg (28.0-33.3); Mean Corpuscular Volume 95.7 fL (83.0-100.0); Platelet Count 170 K/mcL (140-400); Red Blood Count 2.56 M/mcL (3.82-4.97); Red Cell Distribution Width 19.3 % (11.5-14.5); White Blood Count 4.1 K/mcL (4.3-11.1)
[2019-09-02 04:59] LABS: Calcium 8.5 mg/dL (8.6-10.3); Potassium 4.2 mEq/L (3.5-5.1)
[2019-09-02] MEDS: Bumetanide 1 MG/4 ML VIAL IVP SCH ×2 (05:58→18:09)
[2019-09-02] MEDS: Levalbuterol Neb 1.25 MG/3 ML IH SCH ×5 (07:57→23:55)
[2019-09-02] MEDS: Insulin LISPRO 300 UNITS/3 ML VIAL SQ SCH ×4 (08:14→21:50)
[2019-09-02] MEDS: Ascorbic Acid 500 MG TABLET PO SCH (08:22)
[2019-09-02] MEDS: *HR* Ticagrelor 90 MG TABLET PO SCH ×2 (08:22→21:50)
[2019-09-02] MEDS: Aspirin 81 MG TAB.CHEW PO SCH (08:22)
[2019-09-02] MEDS: Acetaminophen 325 MG TABLET PO PRN (14:01)
[2019-09-02] MEDS ORDERED: Mag Hydrox/Al Hydrox/Simeth 30 ML UDC PO PRN (18:07)
[2019-09-02] MEDS: cefTRIAXone 1,000 MG in Water for inj. (sterile) 10 ML IVPB SCH (18:09)
[2019-09-02] MEDS: Insulin DETEMIR 100 UNIT/ML X5UNITS SQ SCH (21:53)
[2019-09-03] MEDS: Acetaminophen 325 MG TABLET PO PRN ×2 (00:38→20:23)
[2019-09-03] MEDS: Levalbuterol Neb 1.25 MG/3 ML IH SCH ×6 (04:18→23:18)
[2019-09-03] MEDS: Bumetanide 1 MG/4 ML VIAL IVP SCH ×2 (06:05→18:22)
[2019-09-03 08:46] LABS: Hematocrit 28.6 % (35.3-44.9); Hemoglobin 8.8 g/dL (11.5-15.4); Mean Corpuscular HGB Conc 30.8 g/dL (31.6-35.5); Mean Corpuscular Hemoglobin 29.5 pg (28.0-33.3); Mean Platelet Volume 10.4 fL (9.4-12.4); Platelet Count 150 K/mcL (140-400); Red Blood Count 2.98 M/mcL (3.82-4.97); Red Cell Distribution Width 19.3 % (11.5-14.5)
[2019-09-03] MEDS ORDERED: NON-FORMULARY MEDICATION 1 EACH EACH (Amlodipine Besylate 10 MG) PO SCH (09:00)
[2019-09-03] MEDS ORDERED: amLODIPine 5 MG TABLET PO SCH (09:00)
[2019-09-03 09:04] LABS: Calcium 8.8 mg/dL (8.6-10.3); Potassium 4.2 mEq/L (3.5-5.1)
[2019-09-03] MEDS: Insulin LISPRO 300 UNITS/3 ML VIAL SQ SCH ×4 (09:17→20:25)
[2019-09-03] MEDS ORDERED: Fluconazole 100 MG TABLET PO SCH (09:30)
[2019-09-03] MEDS: *HR* Ticagrelor 90 MG TABLET PO SCH ×2 (11:17→20:25)
[2019-09-03] MEDS: Aspirin 81 MG TAB.CHEW PO SCH (11:17)
[2019-09-03] MEDS: Ascorbic Acid 500 MG TABLET PO SCH (11:17)
[2019-09-03] MEDS: *HR* Heparin 5,000 UNIT/ML VIAL SQ SCH (18:23)
[2019-09-03] MEDS: Insulin DETEMIR 100 UNIT/ML X5UNITS SQ SCH (20:40)
[2019-09-04] MEDS: Levalbuterol Neb 1.25 MG/3 ML IH SCH ×5 (03:23→19:51)
[2019-09-04 05:28] LABS: Hemoglobin 8.3 g/dL (11.5-15.4); Mean Corpuscular HGB Conc 30.7 g/dL (31.6-35.5); Mean Corpuscular Hemoglobin 29.4 pg (28.0-33.3); Mean Corpuscular Volume 95.7 fL (83.0-100.0); Mean Platelet Volume 10.6 fL (9.4-12.4); Platelet Count 154 K/mcL (140-400); Red Blood Count 2.82 M/mcL (3.82-4.97); White Blood Count 3.4 K/mcL (4.3-11.1)
[2019-09-04 05:48] LABS: Calcium 8.7 mg/dL (8.6-10.3); Potassium 3.6 mEq/L (3.5-5.1)
[2019-09-04] MEDS: Bumetanide 1 MG/4 ML VIAL IVP SCH ×2 (06:14→17:20)
[2019-09-04] MEDS: *HR* Heparin 5,000 UNIT/ML VIAL SQ SCH ×2 (06:15→17:20)
[2019-09-04] MEDS: Insulin LISPRO 300 UNITS/3 ML VIAL SQ SCH ×4 (07:57→19:35)
[2019-09-04] MEDS: Ascorbic Acid 500 MG TABLET PO SCH (09:11)
[2019-09-04] MEDS: amLODIPine 5 MG TABLET PO SCH (09:11)
[2019-09-04] MEDS: Aspirin 81 MG TAB.CHEW PO SCH (09:11)
[2019-09-04] MEDS: Fluconazole 100 MG TABLET PO SCH (09:11)
[2019-09-04] MEDS: *HR* Ticagrelor 90 MG TABLET PO SCH ×2 (09:12→19:34)
[2019-09-04] MEDS: Insulin DETEMIR 100 UNIT/ML X5UNITS SQ SCH (20:50)
[2019-09-04] MEDS: Acetaminophen 325 MG TABLET PO PRN (22:22)
[2019-09-05] MEDS: Levalbuterol Neb 1.25 MG/3 ML IH SCH ×3 (00:14→10:50)
[2019-09-05 04:59] LABS: Hematocrit 27.3 % (35.3-44.9); Hemoglobin 8.2 g/dL (11.5-15.4); Mean Corpuscular Volume 96.5 fL (83.0-100.0); Mean Platelet Volume 10.8 fL (9.4-12.4); Platelet Count 133 K/mcL (140-400); Red Blood Count 2.83 M/mcL (3.82-4.97); Red Cell Distribution Width 18.7 % (11.5-14.5); White Blood Count 3.4 K/mcL (4.3-11.1)
[2019-09-05] MEDS: *HR* Heparin 5,000 UNIT/ML VIAL SQ SCH (05:13)
[2019-09-05 05:15] LABS: Calcium 8.6 mg/dL (8.6-10.3); Potassium 4.4 mEq/L (3.5-5.1)
[2019-09-05] MEDS: Bumetanide 1 MG/4 ML VIAL IVP SCH (05:15)
[2019-09-05 07:37] VITALS: BP 147/66
[2019-09-05] MEDS: Insulin LISPRO 300 UNITS/3 ML VIAL SQ SCH (07:40)
[2019-09-05] MEDS: amLODIPine 5 MG TABLET PO SCH (09:17)
[2019-09-05] MEDS: *HR* Ticagrelor 90 MG TABLET PO SCH (09:17)
[2019-09-05] MEDS: Fluconazole 100 MG TABLET PO SCH (09:17)
[2019-09-05] MEDS: Ascorbic Acid 500 MG TABLET PO SCH (09:18)
[2019-09-05] MEDS: Aspirin 81 MG TAB.CHEW PO SCH (09:18)
== END 2019-09-05 13:00 | disposition home health service (06) | DRG 312 ==
LOC: 3BNU 00:29 → EMEROOARM 00:29 → 3BNU 02:53
PROVIDERS: ADMIT Internal Medicine; ATTEND Internal Medicine

== ENCOUNTER 2019-09-10 09:11 | Inpatient (IN) ==
[2019-09-10] MEDS ORDERED: Isovue-370 500 ML BOTTLE IVP ONE (09:20)
[2019-09-10 09:34] LABS: Basophils % 0.6 %; Eosinophils # 0.2 K/mcL (0.0-0.6); Eosinophils % 3.6 %; Hematocrit 29.1 % (35.3-44.9); Immature Granulocytes % 0.3 % (0-4); Lymphocytes % 16.4 %; Mean Corpuscular HGB Conc 30.9 g/dL (31.6-35.5); Mean Corpuscular Hemoglobin 28.8 pg (28.0-33.3); Mean Corpuscular Volume 93.3 fL (83.0-100.0); Mean Platelet Volume 11.2 fL (9.4-12.4); Monocytes # 0.4 K/mcL (0.0-1.3); Monocytes % 6.5 %; Neutrophils # 4.5 K/mcL (1.6-8.9); Platelet Count 171 K/mcL (140-400); Red Blood Count 3.12 M/mcL (3.82-4.97); Red Cell Distribution Width 18.5 % (11.5-14.5); Segmented Neutrophils % 72.6 %
[2019-09-10] MEDS: Nitroglycerin 0.4 MG TAB.SUBL SL PRN ×3 (09:40→09:51)
[2019-09-10 09:51] LABS: White Blood Count 6.2 K/mcL (4.3-11.1)
[2019-09-10 09:55] LABS: Prothrombin Time 11.7 Seconds (9.4-12.1)
[2019-09-10 09:57] LABS: Activated Partial Thrombo Time 51.6 Seconds (26.0-36.0)
[2019-09-10 10:00] LABS: BUN/Creatinine Ratio 18 (6-26); Blood Urea Nitrogen 27 mg/dL (8-23); Calcium 9.3 mg/dL (8.6-10.3); Carbon Dioxide 27 mEq/L (23-29); Chloride 106 mEq/L (98-107); Glucose 219 mg/dL (70-105); Osmolality,Calculated 306 (280-300); Potassium 4.8 mEq/L (3.5-5.1); Sodium 142 mEq/L (136-145); Troponin I < 0.03 ng/mL (< 0.04); eGFR For African Americans 40 (> 60); eGFR For Non-African Americans 33 (> 60)
[2019-09-10] MEDS ORDERED: Furosemide 40 MG/4 ML VIAL IVP ONE (10:18)
[2019-09-10] MEDS ORDERED: Pantoprazole 40 MG VIAL IVP ONE (12:34)
[2019-09-10] MEDS ORDERED: Ondansetron ODT 4 MG TAB.RAPDIS SL PRN (12:35)
[2019-09-10] MEDS ORDERED: *HR* HYDROcodone/Acet 5/325 mg TABLET PO PRN (17:13)
[2019-09-10] MEDS ORDERED: Furosemide 40 MG/4 ML VIAL IVP SCH (17:31)
[2019-09-10] MEDS: Pantoprazole 40 MG VIAL IVP SCH (17:42)
[2019-09-10] MEDS: *HR* Ticagrelor 90 MG TABLET PO SCH (20:49)
[2019-09-11 01:18] LABS: Basophils % 0.5 %; Eosinophils # 0.2 K/mcL (0.0-0.6); Eosinophils % 5.7 %; Hematocrit 25.2 % (35.3-44.9); Hemoglobin 7.6 g/dL (11.5-15.4); Immature Granulocytes % 0.5 % (0-4); Lymphocytes # 0.5 K/mcL (0.6-4.6); Lymphocytes % 12.7 %; Mean Corpuscular HGB Conc 30.2 g/dL (31.6-35.5); Mean Corpuscular Hemoglobin 29.3 pg (28.0-33.3); Mean Corpuscular Volume 97.3 fL (83.0-100.0); Mean Platelet Volume 11.3 fL (9.4-12.4); Monocytes # 0.4 K/mcL (0.0-1.3); Monocytes % 8.5 %; Neutrophils # 3.1 K/mcL (1.6-8.9); Platelet Count 144 K/mcL (140-400); Red Blood Count 2.59 M/mcL (3.82-4.97); Red Cell Distribution Width 18.6 % (11.5-14.5); Segmented Neutrophils % 72.1 %; White Blood Count 4.2 K/mcL (4.3-11.1)
[2019-09-11 01:30] LABS: Potassium 4.7 mEq/L (3.5-5.1)
[2019-09-11] MEDS: Pantoprazole 40 MG VIAL IVP SCH ×2 (05:57→17:51)
[2019-09-11] MEDS ORDERED: Insulin DETEMIR 100 UNIT/ML X5UNITS SQ SCH (09:00)
[2019-09-11] MEDS ORDERED: *HR* Propofol 200 MG/20 ML VIAL IVP ONE ×2 (09:49→09:50)
[2019-09-11] MEDS ORDERED: Lidocaine -MPF 2% 2 ML VIAL ONE (09:52)
[2019-09-11] MEDS ORDERED: Dextrose Gel 15 GM/37.5 ML TUBE PO PRN ×2 (10:33)
[2019-09-11] MEDS ORDERED: *HR* Dextrose 50 % in Water (Syg) 50 ML SYRINGE IVP PRN (10:33)
[2019-09-11] MEDS ORDERED: D5% in Water 1,000 ML IVC PRN (10:33)
[2019-09-11] MEDS: amLODIPine 5 MG TABLET PO SCH (10:53)
[2019-09-11] MEDS: Aspirin 81 MG TAB.CHEW PO SCH (10:53)
[2019-09-11] MEDS: *HR* Ticagrelor 90 MG TABLET PO SCH ×2 (10:53→19:58)
[2019-09-11] MEDS ORDERED: Insulin LISPRO 300 UNITS/3 ML VIAL SQ SCH (12:00)
[2019-09-11] MEDS: Insulin LISPRO 300 UNITS/3 ML VIAL SQ SCH (20:16)
[2019-09-12 01:44] LABS: Basophils % 0.7 %; Eosinophils # 0.2 K/mcL (0.0-0.6); Eosinophils % 4.5 %; Hematocrit 25.4 % (35.3-44.9); Hemoglobin 7.7 g/dL (11.5-15.4); Immature Granulocytes % 0.2 % (0-4); Lymphocytes # 0.6 K/mcL (0.6-4.6); Lymphocytes % 12.4 %; Mean Corpuscular HGB Conc 30.3 g/dL (31.6-35.5); Mean Corpuscular Hemoglobin 28.5 pg (28.0-33.3); Mean Corpuscular Volume 94.1 fL (83.0-100.0); Mean Platelet Volume 11.2 fL (9.4-12.4); Monocytes # 0.4 K/mcL (0.0-1.3); Monocytes % 8.8 %; Neutrophils # 3.3 K/mcL (1.6-8.9); Platelet Count 135 K/mcL (140-400); Red Cell Distribution Width 18.2 % (11.5-14.5); Segmented Neutrophils % 73.4 %; White Blood Count 4.5 K/mcL (4.3-11.1)
[2019-09-12 02:04] LABS: Calcium 8.9 mg/dL (8.6-10.3); Potassium 3.9 mEq/L (3.5-5.1)
[2019-09-12] MEDS: Pantoprazole 40 MG VIAL IVP SCH (05:11)
[2019-09-12] MEDS: Insulin LISPRO 300 UNITS/3 ML VIAL SQ SCH ×4 (08:02→21:39)
[2019-09-12] MEDS: *HR* Ticagrelor 90 MG TABLET PO SCH ×2 (08:02→21:42)
[2019-09-12] MEDS: amLODIPine 5 MG TABLET PO SCH (08:02)
[2019-09-12] MEDS: Aspirin 81 MG TAB.CHEW PO SCH (08:02)
[2019-09-12] MEDS: Bumetanide 1 MG TABLET PO SCH ×2 (12:18→16:46)
[2019-09-13 04:58] LABS: Basophils % 0.7 %; Eosinophils # 0.2 K/mcL (0.0-0.6); Eosinophils % 5.6 %; Hematocrit 26.9 % (35.3-44.9); Immature Granulocytes % 0.2 % (0-4); Lymphocytes # 0.7 K/mcL (0.6-4.6); Lymphocytes % 16.3 %; Mean Corpuscular HGB Conc 29.7 g/dL (31.6-35.5); Mean Corpuscular Volume 97.5 fL (83.0-100.0); Mean Platelet Volume 11.7 fL (9.4-12.4); Monocytes # 0.4 K/mcL (0.0-1.3); Monocytes % 9.6 %; Neutrophils # 2.9 K/mcL (1.6-8.9); Platelet Count 133 K/mcL (140-400); Red Blood Count 2.76 M/mcL (3.82-4.97); Red Cell Distribution Width 17.8 % (11.5-14.5); Segmented Neutrophils % 67.6 %; White Blood Count 4.3 K/mcL (4.3-11.1)
[2019-09-13 05:13] LABS: Calcium 8.8 mg/dL (8.6-10.3); Potassium 4.2 mEq/L (3.5-5.1)
[2019-09-13] MEDS: amLODIPine 5 MG TABLET PO SCH (08:16)
[2019-09-13] MEDS: Bumetanide 1 MG TABLET PO SCH (08:16)
[2019-09-13] MEDS: Aspirin 81 MG TAB.CHEW PO SCH (08:16)
[2019-09-13] MEDS: *HR* Ticagrelor 90 MG TABLET PO SCH ×2 (08:16→20:58)
[2019-09-13] MEDS: Insulin LISPRO 300 UNITS/3 ML VIAL SQ SCH ×4 (08:17→20:58)
[2019-09-13] MEDS: Furosemide 40 MG/4 ML VIAL IVP SCH (16:53)
[2019-09-14 05:53] LABS: Basophils % 0.8 %; Eosinophils # 0.2 K/mcL (0.0-0.6); Eosinophils % 4.7 %; Hematocrit 26.8 % (35.3-44.9); Hemoglobin 8.3 g/dL (11.5-15.4); Immature Granulocytes % 0.2 % (0-4); Lymphocytes # 0.7 K/mcL (0.6-4.6); Lymphocytes % 13.7 %; Mean Corpuscular Hemoglobin 29.2 pg (28.0-33.3); Mean Corpuscular Volume 94.4 fL (83.0-100.0); Mean Platelet Volume 11.7 fL (9.4-12.4); Monocytes # 0.4 K/mcL (0.0-1.3); Monocytes % 7.8 %; Neutrophils # 3.6 K/mcL (1.6-8.9); Platelet Count 131 K/mcL (140-400); Red Blood Count 2.84 M/mcL (3.82-4.97); Red Cell Distribution Width 17.4 % (11.5-14.5); Segmented Neutrophils % 72.8 %; White Blood Count 4.9 K/mcL (4.3-11.1)
[2019-09-14 06:15] LABS: Calcium 8.7 mg/dL (8.6-10.3); Potassium 4.3 mEq/L (3.5-5.1)
[2019-09-14] MEDS: Aspirin 81 MG TAB.CHEW PO SCH (08:17)
[2019-09-14] MEDS: amLODIPine 5 MG TABLET PO SCH (08:17)
[2019-09-14] MEDS: *HR* Ticagrelor 90 MG TABLET PO SCH (08:17)
[2019-09-14] MEDS: Insulin LISPRO 300 UNITS/3 ML VIAL SQ SCH ×2 (08:17→11:54)
[2019-09-14] MEDS: Furosemide 40 MG/4 ML VIAL IVP SCH (08:17)
[2019-09-14 11:46] VITALS: BP 154/70
== END 2019-09-14 14:40 | disposition home health service (06) | DRG 368 ==
LOC: EMEROOARM 09:11 → 3BNU 09:11
PROVIDERS: ADMIT Internal Medicine; ATTEND Internal Medicine
PROC: ENDOEBX (2019-09-11 11:30)

== ENCOUNTER 2021-12-15 12:04 | Inpatient (IN) ==
[2021-12-15] MEDS ORDERED: Furosemide 20 MG/2 ML VIAL IVP ONE (12:08)
[2021-12-15] MEDS ORDERED: Isovue-370 500 ML BOTTLE IVP ONE (12:09)
[2021-12-15] MEDS ORDERED: Nitroglycerin 0.4 MG TAB.SUBL SL SCH (12:15)
[2021-12-15 12:18] LABS: Basophils # 0.1 K/mcL (0.0-0.2); Basophils % 0.5 %; Eosinophils # 0.2 K/mcL (0.0-0.6); Eosinophils % 1.3 %; Hematocrit 34.9 % (35.3-44.9); Hemoglobin 10.4 g/dL (11.5-15.4); Immature Granulocytes % 0.6 % (0-4); Lymphocytes # 1.7 K/mcL (0.6-4.6); Lymphocytes % 11.3 %; Mean Corpuscular HGB Conc 29.8 g/dL (31.6-35.5); Mean Corpuscular Hemoglobin 27.4 pg (28.0-33.3); Mean Corpuscular Volume 92.1 fL (83.0-100.0); Mean Platelet Volume 10.1 fL (9.4-12.4); Monocytes # 0.7 K/mcL (0.0-1.3); Monocytes % 4.6 %; Neutrophils # 12.6 K/mcL (1.6-8.9); Platelet Count 428 K/mcL (140-400); Red Blood Count 3.79 M/mcL (3.82-4.97); Red Cell Distribution Width 17.3 % (11.5-14.5); Segmented Neutrophils % 81.7 %; White Blood Count 15.4 K/mcL (4.3-11.1)
[2021-12-15] MEDS ORDERED: Nitroglycerin 1 INCH/GM PACKET TP ONE (12:18)
[2021-12-15 12:26] LABS: INR 1.2; Prothrombin Time 13.9 Seconds (9.4-12.1)
[2021-12-15 12:29] LABS: Bilirubin,Urine Negative (Negative); Blood,Urine Negative (Negative); Budding Yeast,Urine Many per hpf (None Seen); Clarity,Urine Turbid (Clear); Color,Urine Yellow (Yellow); Glucose,Urine (UA) >=1000 mg/dL (Normal); Ketones,Urine Negative (Negative); Leukocyte Esterase,Urine Negative (Negative); Nitrite,Urine Negative (Negative); PH,Urine 5.5 pH Units (5.0-8.0); Protein,Urine 30 mg/dL (Neg-Trace); RBC,Urine 0-3 per hpf (0-3); Specific Gravity,Urine 1.021 (1.010-1.025); Urobilinogen,Urine Normal (Normal)
[2021-12-15] MEDS ORDERED: Fluconazole 150 MG TABLET PO ONE (12:34)
[2021-12-15 12:41] LABS: Alanine Aminotransferase 24 Units/L (7-52); Albumin 4.2 g/dL (3.5-5.7); Albumin/Globulin Ratio 1.2 (1.1-2.2); Alkaline Phosphatase 77 Units/L (34-104); Aspartate Amino Transferase 45 Units/L (13-39); BUN/Creatinine Ratio 20 (6-26); Bilirubin,Total 0.5 mg/dL (0.3-1.0); Blood Urea Nitrogen 23 mg/dL (8-23); Calcium 9.5 mg/dL (8.6-10.3); Carbon Dioxide 26 mEq/L (23-29); Chloride 101 mEq/L (98-107); Globulin 3.5 g/dL (2.4-3.5); Glucose 247 mg/dL (70-105); Osmolality,Calculated 300 (280-300); Potassium 4.4 mEq/L (3.5-5.1); Sodium 139 mEq/L (136-145); Total Protein 7.7 g/dL (6.4-8.9); Troponin I < 0.03 ng/mL (< 0.04); eGFR For African Americans 55 (> 60); eGFR For Non-African Americans 46 (> 60)
[2021-12-15] MEDS ORDERED: Piperacillin/Tazobactam 3.375 GM in 0.9 % Sodium Chloride Mini Bag 100 ML IVPB ONE (13:30)
[2021-12-15 13:36] LABS: Adenovirus Not Detected (Not Detect); Bordetella Pertussis Not Detected (Not Detect); Chlamydophila pneumoniae Not Detected (Not Detect); Coronavirus 229E Not Detected (Not Detect); Coronavirus HKU1 Not Detected (Not Detect); Coronavirus NL63 Not Detected (Not Detect); Coronavirus OC43 Not Detected (Not Detect); Human Metapneumovirus Not Detected (Not Detect); Human Rhinovirus/Enterovirus Not Detected (Not Detect); Influenza A Subtype 2009 H1 Not Detected (Not Detect); Influenza B Not Detected (Not Detect); Mycoplasma pneumoniae Not Detected (Not Detect); Parainfluenza Virus 1 Not Detected (Not Detect); Parainfluenza Virus 2 Not Detected (Not Detect); Parainfluenza Virus 3 Not Detected (Not Detect); Parainfluenza Virus 4 Not Detected (Not Detect); Respiratory Syncytial Virus Not Detected (Not Detect); SARS-CoV-2 Not Detected (Not Detect)
[2021-12-15] MEDS ORDERED: Vancomycin 1,250 MG/262.5 ML IV.SOLN IVPB ONE (14:00)
[2021-12-15] MEDS ORDERED: Melatonin 3 MG TABLET PO PRN (15:09)
[2021-12-15] MEDS ORDERED: MOM Conc 10 ML UD.LIQ PO PRN (15:09)
[2021-12-15] MEDS ORDERED: Naloxone 0.4 MG/ML INJ IVP PRN (15:09)
[2021-12-15] MEDS ORDERED: Acetaminophen 325 MG TABLET PO PRN (15:09)
[2021-12-15] MEDS ORDERED: Ondansetron ODT 4 MG TAB.RAPDIS SL PRN (15:09)
[2021-12-15] MEDS ORDERED: *HR* Metoprolol 5 MG/5 ML VIAL IVP ONE (15:27)
[2021-12-15] MEDS ORDERED: D5% in Water 1,000 ML IVC PRN (15:29)
[2021-12-15] MEDS ORDERED: Dextrose 4 GM Chewable Tablets PO PRN ×2 (15:29)
[2021-12-15] MEDS ORDERED: *HR* Dextrose 50 % in Water (Syg) 50 ML SYRINGE IVP PRN (15:29)
[2021-12-15] MEDS ORDERED: Azithromycin 500 MG in 0.9 % Sodium Chloride 250 ML IVPB SCH (16:00)
[2021-12-15] MEDS ORDERED: Insulin LISPRO 300 UNITS/3 ML VIAL SUBQ SCH ×2 (16:30→21:00)
[2021-12-15] MEDS ORDERED: *HR* LORazepam 2 MG/ML VIAL IVP ONE (16:52)
[2021-12-15] MEDS ORDERED: Furosemide 40 MG/4 ML VIAL IVP ONE (17:03)
[2021-12-15] MEDS ORDERED: Albumin 25% 25gram/100mL 25 GM/100 ML IV.SOLN IVPB ONE ×2 (17:21→18:21)
[2021-12-15] MEDS ORDERED: *HR* LORazepam 2 MG/ML VIAL IVP PRN (17:22)
[2021-12-15] MEDS ORDERED: Perflutren Lipid Microsphere 1.3 ML in 0.9 % Sodium Chloride 8.7 ML IVP PRN (17:52)
[2021-12-15] MEDS ORDERED: Albumin 25% 25gram/100mL 25 GM/100 ML IV.SOLN ONE (18:21)
[2021-12-15] MEDS ORDERED: 0.9 % Sodium Chloride 1,000 ML ONE (18:22)
[2021-12-15] MEDS ORDERED: *HR* Etomidate 20 MG/10 ML AMPUL IVP ONE (18:40)
[2021-12-15] MEDS ORDERED: *HR* Midazolam HCl 5 MG/5 ML VIAL IVP ONE (18:40)
[2021-12-15] MEDS: *HR* Enoxaparin 80 MG/0.8 ML SYRINGE SQ SCH (18:46)
[2021-12-15] MEDS: Norepinephrine 4 MG/254 ML IV.SOLN IVC SCH ×2 (19:00→22:15)
[2021-12-15 19:19] LABS: Estimated Average Glucose 200 mg/dl; Hemoglobin A1C 8.6 %
[2021-12-15] MEDS: FentaNYL (PF) 1,000 MCG/100 ML IV.SOLN IVC SCH (20:15)
[2021-12-15] MEDS ORDERED: Artificial Tears SOLN 15 ML BOTTLE BOTH EYES PRN (20:25)
[2021-12-15] MEDS: Dexmedetomidine HCl 400 MCG/100 ML MLS IVC SCH (20:48)
[2021-12-15] MEDS: Chlorhexidine Rinse 15 ML MOUTHWASH MM SCH (21:01)
[2021-12-15] MEDS: *HR* Ticagrelor 90 MG TABLET PO SCH (21:01)
[2021-12-15] MEDS: Hydrocortisone Sodium Succ 100 MG/2 ML VIAL IVP SCH (21:01)
[2021-12-15] MEDS: Piperacillin/Tazobactam 3.375 GM in 0.9 % Sodium Chloride Mini Bag 100 ML IVPB SCH (21:02)
[2021-12-15 21:03] LABS: ABG Base Excess -11 mEq/L (-2 to 3); ABG HCO3 15 mEq/L (21-27); ABG Oxygen Saturation 95 % (95-98); ABG PCO2 33 mmHg (35-45); ABG PH 7.26 pH Units (7.32-7.45); ABG PO2 86 mmHg (85-104); ABG TCO2 16 mEq/L (20-26); Blood Gas Modality AF; Blood Gas VT 420 cc
[2021-12-15] MEDS: Pantoprazole 40 MG VIAL IVP SCH (21:57)
[2021-12-15 22:30] LABS: Basophils % 0.2 %; Eosinophils % 0.1 %; Hematocrit 30.3 % (35.3-44.9); Immature Granulocytes % 1.9 % (0-4); Lymphocytes # 0.4 K/mcL (0.6-4.6); Lymphocytes % 2.6 %; Mean Corpuscular HGB Conc 29.7 g/dL (31.6-35.5); Mean Corpuscular Hemoglobin 27.2 pg (28.0-33.3); Mean Corpuscular Volume 91.5 fL (83.0-100.0); Mean Platelet Volume 10.1 fL (9.4-12.4); Monocytes # 0.4 K/mcL (0.0-1.3); Monocytes % 2.5 %; Neutrophils # 14.2 K/mcL (1.6-8.9); Nucleated Red Blood Cells 0.1 /100 WBC (0); Platelet Count 367 K/mcL (140-400); Red Blood Count 3.31 M/mcL (3.82-4.97); Red Cell Distribution Width 17.4 % (11.5-14.5); Segmented Neutrophils % 92.7 %; White Blood Count 15.3 K/mcL (4.3-11.1)
[2021-12-15 22:59] LABS: Albumin 3.9 g/dL (3.5-5.7); Albumin/Globulin Ratio 1.7 (1.1-2.2); Bilirubin,Direct 0.6 mg/dL (0.0-0.2); Bilirubin,Indirect 0.8 mg/dL (0.0-1.0); Bilirubin,Total 1.4 mg/dL (0.3-1.0); Calcium 7.9 mg/dL (8.6-10.3); Globulin 2.3 g/dL (2.4-3.5); Potassium 5.8 mEq/L (3.5-5.1); Total Protein 6.2 g/dL (6.4-8.9)
[2021-12-15] MEDS ORDERED: Insulin Human Regular 10 UNIT in 0.9 % Sodium Chloride 10 ML IV ONE (23:54)
[2021-12-15] MEDS ORDERED: Calcium Gluconate 1gm/50mL 1 GM/50 ML BAG IVPB PRN (23:55)
[2021-12-16] MEDS: Norepinephrine 4 MG/254 ML IV.SOLN IVC SCH ×4 (00:15→18:43)
[2021-12-16] MEDS: Artificial Tears SOLN 15 ML BOTTLE BOTH EYES SCH ×6 (00:20→20:36)
[2021-12-16 00:30] LABS: ABG Base Excess -4 mEq/L (-2 to 3); ABG HCO3 21 mEq/L (21-27); ABG Oxygen Saturation 93 % (95-98); ABG PCO2 37 mmHg (35-45); ABG PH 7.35 pH Units (7.32-7.45); ABG PO2 70 mmHg (85-104); ABG TCO2 22 mEq/L (20-26); Blood Gas Modality AF; Blood Gas VT 420 cc
[2021-12-16] MEDS: Hydrocortisone Sodium Succ 100 MG/2 ML VIAL IVP SCH ×4 (02:54→20:24)
[2021-12-16] MEDS: FentaNYL (PF) 1,000 MCG/100 ML IV.SOLN IVC SCH ×4 (03:40→21:02)
[2021-12-16 03:54] LABS: Basophils % 0.1 %; Hematocrit 29.5 % (35.3-44.9); Immature Granulocytes % 1.5 % (0-4); Lymphocytes # 0.6 K/mcL (0.6-4.6); Lymphocytes % 2.3 %; Mean Corpuscular HGB Conc 30.5 g/dL (31.6-35.5); Mean Corpuscular Hemoglobin 27.1 pg (28.0-33.3); Mean Corpuscular Volume 88.9 fL (83.0-100.0); Mean Platelet Volume 10.2 fL (9.4-12.4); Monocytes # 0.5 K/mcL (0.0-1.3); Monocytes % 2.1 %; Platelet Count 381 K/mcL (140-400); Red Blood Count 3.32 M/mcL (3.82-4.97); Red Cell Distribution Width 17.3 % (11.5-14.5)
[2021-12-16 03:58] LABS: INR 1.8; Prothrombin Time 20.3 Seconds (9.4-12.1); White Blood Count 24.5 K/mcL (4.3-11.1)
[2021-12-16 04:00] LABS: VBG Ionized Calcium 1.08 mmol/L (1.15-1.35)
[2021-12-16 04:11] LABS: Calcium 8.3 mg/dL (8.6-10.3); Magnesium 1.9 mg/dL (1.6-2.6); Phosphorous 3.9 mg/dL (2.7-4.5); Potassium 4.3 mEq/L (3.5-5.1)
[2021-12-16 04:41] LABS: ABG Base Excess -1 mEq/L (-2 to 3); ABG HCO3 22 mEq/L (21-27); ABG Oxygen Saturation 97 % (95-98); ABG PCO2 34 mmHg (35-45); ABG PH 7.43 pH Units (7.32-7.45); ABG PO2 89 mmHg (85-104); ABG TCO2 24 mEq/L (20-26); Blood Gas Modality AT; Blood Gas VT 420 cc
[2021-12-16] MEDS ORDERED: 0.9 % Sodium Chloride 500 ML IVC ONE (05:07)
[2021-12-16] MEDS ORDERED: 0.9 % Sodium Chloride 500 ML ONE (05:12)
[2021-12-16] MEDS: Piperacillin/Tazobactam 3.375 GM in 0.9 % Sodium Chloride Mini Bag 100 ML IVPB SCH ×3 (05:14→20:25)
[2021-12-16] MEDS: *HR* Enoxaparin 80 MG/0.8 ML SYRINGE SQ SCH (05:14)
[2021-12-16] MEDS: Insulin LISPRO 300 UNITS/3 ML VIAL SUBQ SCH ×3 (05:34→17:13)
[2021-12-16] MEDS: Dexmedetomidine HCl 400 MCG/100 ML MLS IVC SCH ×3 (06:39→20:35)
[2021-12-16] MEDS: Pantoprazole 40 MG VIAL IVP SCH (08:20)
[2021-12-16] MEDS: Chlorhexidine Rinse 15 ML MOUTHWASH MM SCH ×2 (08:20→20:28)
[2021-12-16] MEDS: Aspirin 81 MG TAB.CHEW PO SCH (08:21)
[2021-12-16] MEDS: *HR* Ticagrelor 90 MG TABLET PO SCH ×2 (08:21→20:24)
[2021-12-16] MEDS: Insulin DETEMIR 100 UNIT/ML X5UNITS SUBQ SCH (08:40)
[2021-12-16] MEDS ORDERED: cefTRIAXone 2,000 MG in 0.9 % Sodium Chloride 20 ML IVP SCH (09:00)
[2021-12-16] MEDS ORDERED: Azithromycin 250 MG TABLET PO SCH (09:00)
[2021-12-16] MEDS ORDERED: Vancomycin 1,250 MG/262.5 ML IV.SOLN IVPB SCH (14:00)
[2021-12-17] MEDS: Artificial Tears SOLN 15 ML BOTTLE BOTH EYES SCH ×7 (00:14→23:36)
[2021-12-17] MEDS: Insulin LISPRO 300 UNITS/3 ML VIAL SUBQ SCH ×5 (00:15→23:36)
[2021-12-17] MEDS: Dexmedetomidine HCl 400 MCG/100 ML MLS IVC SCH ×2 (01:57→06:55)
[2021-12-17] MEDS: FentaNYL (PF) 1,000 MCG/100 ML IV.SOLN IVC SCH ×2 (01:57→08:30)
[2021-12-17] MEDS: Hydrocortisone Sodium Succ 100 MG/2 ML VIAL IVP SCH ×3 (01:58→17:18)
[2021-12-17 03:52] LABS: ABG Base Excess -2 mEq/L (-2 to 3); ABG HCO3 23 mEq/L (21-27); ABG Oxygen Saturation 98 % (95-98); ABG PCO2 35 mmHg (35-45); ABG PH 7.42 pH Units (7.32-7.45); ABG PO2 101 mmHg (85-104); ABG TCO2 24 mEq/L (20-26); Blood Gas VT 420 cc
[2021-12-17 04:34] LABS: Basophils % 0.3 %; Hematocrit 30.6 % (35.3-44.9); Hemoglobin 9.2 g/dL (11.5-15.4); Immature Granulocytes % 0.7 % (0-4); Lymphocytes # 0.7 K/mcL (0.6-4.6); Lymphocytes % 4.5 %; Mean Corpuscular HGB Conc 30.1 g/dL (31.6-35.5); Mean Corpuscular Hemoglobin 26.2 pg (28.0-33.3); Mean Corpuscular Volume 87.2 fL (83.0-100.0); Mean Platelet Volume 10.3 fL (9.4-12.4); Monocytes # 0.5 K/mcL (0.0-1.3); Monocytes % 3.2 %; Neutrophils # 14.6 K/mcL (1.6-8.9); Platelet Count 330 K/mcL (140-400); Red Blood Count 3.51 M/mcL (3.82-4.97); Red Cell Distribution Width 17.6 % (11.5-14.5); Segmented Neutrophils % 91.3 %; White Blood Count 15.9 K/mcL (4.3-11.1)
[2021-12-17 04:40] LABS: INR 1.8; Prothrombin Time 19.6 Seconds (9.4-12.1)
[2021-12-17 04:51] LABS: Calcium 8.1 mg/dL (8.6-10.3); Potassium 3.7 mEq/L (3.5-5.1)
[2021-12-17] MEDS: Piperacillin/Tazobactam 3.375 GM in 0.9 % Sodium Chloride Mini Bag 100 ML IVPB SCH ×3 (05:27→20:03)
[2021-12-17] MEDS: *HR* Enoxaparin 30 MG/0.3 ML SYRINGE SQ SCH (05:28)
[2021-12-17] MEDS ORDERED: *HR* Enoxaparin 80 MG/0.8 ML SYRINGE SQ SCH (06:00)
[2021-12-17] MEDS: Aspirin 81 MG TAB.CHEW PO SCH (08:37)
[2021-12-17] MEDS: *HR* Ticagrelor 90 MG TABLET PO SCH ×2 (08:37→20:02)
[2021-12-17] MEDS: Pantoprazole 40 MG VIAL IVP SCH (08:37)
[2021-12-17] MEDS: Chlorhexidine Rinse 15 ML MOUTHWASH MM SCH ×2 (08:37→20:01)
[2021-12-17] MEDS: Insulin DETEMIR 100 UNIT/ML X5UNITS SUBQ SCH (08:37)
[2021-12-17] MEDS: Furosemide 40 MG/4 ML VIAL IVP ONE ×2 (18:04→18:44)
[2021-12-17] MEDS ORDERED: *HR* Digoxin 0.5 MG/2 ML AMPUL IVP ONE (18:59)
[2021-12-17] MEDS: Nystatin POWDER 30 GM BOTTLE TP SCH (20:03)
[2021-12-18] MEDS ORDERED: *HR* Metoprolol 5 MG/5 ML VIAL IVP ONE (02:50)
[2021-12-18] MEDS: Artificial Tears SOLN 15 ML BOTTLE BOTH EYES SCH ×3 (03:05→10:34)
[2021-12-18 03:31] LABS: VBG Ionized Calcium 1.13 mmol/L (1.15-1.35)
[2021-12-18 03:37] LABS: Basophils % 0.2 %; Hematocrit 28.4 % (35.3-44.9); Hemoglobin 8.6 g/dL (11.5-15.4); Immature Granulocytes % 0.7 % (0-4); Lymphocytes # 0.8 K/mcL (0.6-4.6); Mean Corpuscular HGB Conc 30.3 g/dL (31.6-35.5); Mean Corpuscular Hemoglobin 26.9 pg (28.0-33.3); Mean Corpuscular Volume 88.8 fL (83.0-100.0); Monocytes # 0.6 K/mcL (0.0-1.3); Monocytes % 3.6 %; Neutrophils # 14.9 K/mcL (1.6-8.9); Platelet Count 272 K/mcL (140-400); Red Cell Distribution Width 17.3 % (11.5-14.5); Segmented Neutrophils % 90.5 %; White Blood Count 16.4 K/mcL (4.3-11.1)
[2021-12-18 03:51] LABS: Albumin 3.6 g/dL (3.5-5.7); Albumin/Globulin Ratio 1.5 (1.1-2.2); Bilirubin,Total 0.6 mg/dL (0.3-1.0); Calcium 8.4 mg/dL (8.6-10.3); Globulin 2.4 g/dL (2.4-3.5); Potassium 3.6 mEq/L (3.5-5.1)
[2021-12-18] MEDS: Piperacillin/Tazobactam 3.375 GM in 0.9 % Sodium Chloride Mini Bag 100 ML IVPB SCH ×3 (05:14→20:44)
[2021-12-18] MEDS: Hydrocortisone Sodium Succ 100 MG/2 ML VIAL IVP SCH ×2 (05:15→17:29)
[2021-12-18] MEDS: *HR* Enoxaparin 30 MG/0.3 ML SYRINGE SQ SCH (05:15)
[2021-12-18] MEDS: Insulin LISPRO 300 UNITS/3 ML VIAL SUBQ SCH ×4 (05:15→23:35)
[2021-12-18] MEDS ORDERED: Furosemide 40 MG/4 ML VIAL IVP ONE (06:51)
[2021-12-18] MEDS: Aspirin 81 MG TAB.CHEW PO SCH (07:54)
[2021-12-18] MEDS: *HR* Ticagrelor 90 MG TABLET PO SCH ×2 (07:54→19:45)
[2021-12-18] MEDS: Insulin DETEMIR 100 UNIT/ML X5UNITS SUBQ SCH (07:55)
[2021-12-18] MEDS: Pantoprazole 40 MG VIAL IVP SCH (07:55)
[2021-12-18] MEDS: Chlorhexidine Rinse 15 ML MOUTHWASH MM SCH (07:56)
[2021-12-18] MEDS ORDERED: *HR* Digoxin 0.5 MG/2 ML AMPUL IVP ONE (08:43)
[2021-12-18 08:47] LABS: Phosphorous 4.8 mg/dL (2.7-4.5)
[2021-12-18] MEDS: Nystatin POWDER 30 GM BOTTLE TP SCH ×2 (09:03→19:46)
[2021-12-18] MEDS ORDERED: E-Z-HD (BARIUM SULF) SUSPENSION PO ONE (15:07)
[2021-12-18] MEDS ORDERED: E-Z-PAQUE (BARIUM SULF) SUSP 1 BOTTLE PO ONE (15:07)
[2021-12-18] MEDS ORDERED: D5% in Water 1,000 ML IVC PRN (22:10)
[2021-12-18] MEDS ORDERED: *HR* LORazepam 2 MG/ML VIAL IVP PRN (22:10)
[2021-12-18] MEDS ORDERED: Melatonin 3 MG TABLET PO PRN (22:10)
[2021-12-18] MEDS ORDERED: MOM Conc 10 ML UD.LIQ PO PRN (22:10)
[2021-12-18] MEDS ORDERED: *HR* Dextrose 50 % in Water (Syg) 50 ML SYRINGE IVP PRN (22:10)
[2021-12-18] MEDS ORDERED: Acetaminophen 325 MG TABLET PO PRN (22:10)
[2021-12-18] MEDS ORDERED: Dextrose 4 GM Chewable Tablets PO PRN ×2 (22:10)
[2021-12-18] MEDS ORDERED: Artificial Tears SOLN 15 ML BOTTLE BOTH EYES PRN (22:10)
[2021-12-18] MEDS ORDERED: Ondansetron ODT 4 MG TAB.RAPDIS SL PRN (22:10)
[2021-12-18] MEDS ORDERED: Naloxone 0.4 MG/ML INJ IVP PRN (22:10)
[2021-12-19 03:51] LABS: VBG Ionized Calcium 1.18 mmol/L (1.15-1.35)
[2021-12-19 04:11] LABS: Basophils % 0.2 %; Eosinophils % 0.3 %; Hematocrit 27.2 % (35.3-44.9); Hemoglobin 8.5 g/dL (11.5-15.4); Immature Granulocytes % 0.4 % (0-4); Lymphocytes # 0.7 K/mcL (0.6-4.6); Lymphocytes % 5.7 %; Mean Corpuscular HGB Conc 31.3 g/dL (31.6-35.5); Mean Corpuscular Hemoglobin 27.2 pg (28.0-33.3); Mean Corpuscular Volume 87.2 fL (83.0-100.0); Mean Platelet Volume 10.2 fL (9.4-12.4); Monocytes # 0.5 K/mcL (0.0-1.3); Monocytes % 4.4 %; Neutrophils # 10.3 K/mcL (1.6-8.9); Platelet Count 266 K/mcL (140-400); Red Blood Count 3.12 M/mcL (3.82-4.97); Red Cell Distribution Width 17.1 % (11.5-14.5); White Blood Count 11.6 K/mcL (4.3-11.1)
[2021-12-19 04:27] LABS: Albumin 3.6 g/dL (3.5-5.7); Albumin/Globulin Ratio 1.5 (1.1-2.2); Bilirubin,Total 0.6 mg/dL (0.3-1.0); Calcium 8.8 mg/dL (8.6-10.3); Globulin 2.4 g/dL (2.4-3.5); Phosphorous 4.1 mg/dL (2.7-4.5); Potassium 3.2 mEq/L (3.5-5.1)
[2021-12-19] MEDS: Piperacillin/Tazobactam 3.375 GM in 0.9 % Sodium Chloride Mini Bag 100 ML IVPB SCH ×3 (05:15→20:53)
[2021-12-19] MEDS: Pantoprazole 40 MG VIAL IVP SCH (05:16)
[2021-12-19] MEDS: Insulin LISPRO 300 UNITS/3 ML VIAL SUBQ SCH ×4 (05:16→21:19)
[2021-12-19] MEDS: *HR* Enoxaparin 30 MG/0.3 ML SYRINGE SQ SCH (05:17)
[2021-12-19] MEDS ORDERED: Furosemide 20 MG/2 ML VIAL IVP ONE (05:44)
[2021-12-19] MEDS: *HR* Ticagrelor 90 MG TABLET PO SCH ×2 (08:20→20:53)
[2021-12-19] MEDS: Aspirin 81 MG TAB.CHEW PO SCH (08:20)
[2021-12-19] MEDS: Nystatin POWDER 30 GM BOTTLE TP SCH ×2 (08:21→21:20)
[2021-12-19] MEDS ORDERED: Insulin DETEMIR 100 UNIT/ML X5UNITS SUBQ SCH (09:00)
[2021-12-19] MEDS: *HR* Digoxin 0.125 MG TABLET PO SCH (10:36)
[2021-12-19] MEDS: Insulin DETEMIR 100 UNIT/ML X5UNITS SUBQ SCH ×2 (12:15→20:52)
[2021-12-19] MEDS: carvediloL 6.25 MG TABLET PO SCH (17:17)
[2021-12-19] MEDS: Sacubitril/Valsartan 24/26 MG 1 TABLET PO SCH (20:53)
[2021-12-19] MEDS ORDERED: Sacubitril/Valsartan 24/26 MG 1 TABLET PO SCH (21:00)
[2021-12-20] MEDS: Pantoprazole 40 MG VIAL IVP SCH (05:14)
[2021-12-20] MEDS: Piperacillin/Tazobactam 3.375 GM in 0.9 % Sodium Chloride Mini Bag 100 ML IVPB SCH ×2 (05:15→12:38)
[2021-12-20] MEDS: *HR* Enoxaparin 30 MG/0.3 ML SYRINGE SQ SCH (05:15)
[2021-12-20 05:33] LABS: Basophils % 0.3 %; Eosinophils # 0.3 K/mcL (0.0-0.6); Hematocrit 26.3 % (35.3-44.9); Hemoglobin 7.8 g/dL (11.5-15.4); Immature Granulocytes % 0.3 % (0-4); Lymphocytes # 0.6 K/mcL (0.6-4.6); Lymphocytes % 8.5 %; Mean Corpuscular HGB Conc 29.7 g/dL (31.6-35.5); Mean Corpuscular Hemoglobin 26.7 pg (28.0-33.3); Mean Corpuscular Volume 90.1 fL (83.0-100.0); Mean Platelet Volume 10.1 fL (9.4-12.4); Monocytes # 0.5 K/mcL (0.0-1.3); Monocytes % 7.1 %; Neutrophils # 5.4 K/mcL (1.6-8.9); Platelet Count 215 K/mcL (140-400); Red Blood Count 2.92 M/mcL (3.82-4.97); Red Cell Distribution Width 17.2 % (11.5-14.5); Segmented Neutrophils % 78.8 %; White Blood Count 6.8 K/mcL (4.3-11.1)
[2021-12-20 05:44] LABS: Albumin 3.4 g/dL (3.5-5.7); Albumin/Globulin Ratio 1.3 (1.1-2.2); Bilirubin,Total 0.6 mg/dL (0.3-1.0); Calcium 8.8 mg/dL (8.6-10.3); Digoxin 1.6 ng/mL (0.8-2.0); Globulin 2.6 g/dL (2.4-3.5); Magnesium 1.9 mg/dL (1.6-2.6); Potassium 3.4 mEq/L (3.5-5.1)
[2021-12-20] MEDS: Insulin LISPRO 300 UNITS/3 ML VIAL SUBQ SCH ×4 (07:53→21:38)
[2021-12-20] MEDS: carvediloL 6.25 MG TABLET PO SCH ×2 (08:23→16:58)
[2021-12-20] MEDS: *HR* Ticagrelor 90 MG TABLET PO SCH ×2 (08:27→21:35)
[2021-12-20] MEDS: Sacubitril/Valsartan 24/26 MG 1 TABLET PO SCH ×2 (08:27→21:36)
[2021-12-20] MEDS: Aspirin 81 MG TAB.CHEW PO SCH (08:28)
[2021-12-20] MEDS: Nystatin POWDER 30 GM BOTTLE TP SCH ×2 (08:28→21:39)
[2021-12-20] MEDS: Insulin DETEMIR 100 UNIT/ML X5UNITS SUBQ SCH (08:35)
[2021-12-20] MEDS ORDERED: Bumetanide 1 MG TABLET PO SCH (17:00)
[2021-12-20] MEDS ORDERED: Bumetanide 1 MG TABLET PO ONE (18:15)
[2021-12-20] MEDS: Magnesium Oxide 400 MG TABLET PO SCH (18:29)
[2021-12-20] MEDS ORDERED: carvediloL 6.25 MG TABLET PO SCH (18:30)
[2021-12-20] MEDS ORDERED: carvediloL 6.25 MG TABLET PO ONE (18:30)
[2021-12-21 02:05] LABS: Basophils % 0.3 %; Eosinophils # 0.4 K/mcL (0.0-0.6); Hematocrit 27.3 % (35.3-44.9); Hemoglobin 8.3 g/dL (11.5-15.4); Immature Granulocytes % 0.3 % (0-4); Lymphocytes # 0.5 K/mcL (0.6-4.6); Lymphocytes % 7.7 %; Mean Corpuscular HGB Conc 30.4 g/dL (31.6-35.5); Mean Corpuscular Hemoglobin 26.9 pg (28.0-33.3); Mean Corpuscular Volume 88.6 fL (83.0-100.0); Mean Platelet Volume 10.3 fL (9.4-12.4); Monocytes # 0.5 K/mcL (0.0-1.3); Monocytes % 7.3 %; Platelet Count 229 K/mcL (140-400); Red Blood Count 3.08 M/mcL (3.82-4.97); Red Cell Distribution Width 17.2 % (11.5-14.5); Segmented Neutrophils % 78.4 %; White Blood Count 6.3 K/mcL (4.3-11.1)
[2021-12-21 02:22] LABS: Potassium 3.4 mEq/L (3.5-5.1)
[2021-12-21 02:28] LABS: % Iron Saturation 11 % (15-50); Iron 32 mcg/dL (50-170); Transferrin 212 mg/dL (203-362)
[2021-12-21 02:40] LABS: Ferritin 68 ng/mL (10-120)
[2021-12-21 02:46] LABS: Folate 19.9 ng/mL (3.0-16.0)
[2021-12-21 02:47] LABS: Vitamin B12 > 1500 pg/mL (250-1100)
[2021-12-21 04:53] LABS: Digoxin 1.3 ng/mL (0.8-2.0); Magnesium 1.6 mg/dL (1.6-2.6)
[2021-12-21] MEDS: *HR* Enoxaparin 40 MG/0.4 ML SYRINGE SQ SCH (05:01)
[2021-12-21] MEDS: Insulin LISPRO 300 UNITS/3 ML VIAL SUBQ SCH ×4 (07:27→20:16)
[2021-12-21] MEDS: carvediloL 6.25 MG TABLET PO SCH ×2 (07:41→17:09)
[2021-12-21] MEDS: Aspirin 81 MG TAB.CHEW PO SCH (07:42)
[2021-12-21] MEDS: Nystatin POWDER 30 GM BOTTLE TP SCH ×2 (07:43→20:15)
[2021-12-21] MEDS: *HR* Digoxin 0.125 MG TABLET PO SCH (07:43)
[2021-12-21] MEDS: Sacubitril/Valsartan 24/26 MG 1 TABLET PO SCH ×2 (07:43→20:15)
[2021-12-21] MEDS: Magnesium Oxide 400 MG TABLET PO SCH (07:43)
[2021-12-21] MEDS: Bumetanide 1 MG TABLET PO SCH (07:47)
[2021-12-21] MEDS: Insulin DETEMIR 100 UNIT/ML X5UNITS SUBQ SCH (07:58)
[2021-12-21] MEDS ORDERED: carvediloL 6.25 MG TABLET PO SCH (08:00)
[2021-12-21] MEDS: *HR* Ticagrelor 90 MG TABLET PO SCH ×2 (09:12→20:15)
[2021-12-22 02:26] LABS: Basophils % 0.3 %; Eosinophils # 0.4 K/mcL (0.0-0.6); Eosinophils % 5.5 %; Hematocrit 28.3 % (35.3-44.9); Hemoglobin 8.6 g/dL (11.5-15.4); Immature Granulocytes % 0.6 % (0-4); Lymphocytes # 0.8 K/mcL (0.6-4.6); Lymphocytes % 11.8 %; Mean Corpuscular HGB Conc 30.4 g/dL (31.6-35.5); Mean Corpuscular Hemoglobin 26.8 pg (28.0-33.3); Mean Corpuscular Volume 88.2 fL (83.0-100.0); Monocytes # 0.5 K/mcL (0.0-1.3); Monocytes % 6.7 %; Neutrophils # 5.2 K/mcL (1.6-8.9); Platelet Count 238 K/mcL (140-400); Red Blood Count 3.21 M/mcL (3.82-4.97); Red Cell Distribution Width 17.3 % (11.5-14.5); Segmented Neutrophils % 75.1 %; White Blood Count 6.9 K/mcL (4.3-11.1)
[2021-12-22 02:39] LABS: BUN/Creatinine Ratio 22 (6-26); Blood Urea Nitrogen 19 mg/dL (8-23); Calcium 8.9 mg/dL (8.6-10.3); Carbon Dioxide 35 mEq/L (23-29); Chloride 103 mEq/L (98-107); Glucose 109 mg/dL (70-105); Osmolality,Calculated 299 (280-300); Potassium 3.6 mEq/L (3.5-5.1); Sodium 143 mEq/L (136-145); eGFR For African Americans > 60 (> 60); eGFR For Non-African Americans > 60 (> 60)
[2021-12-22] MEDS: *HR* Enoxaparin 40 MG/0.4 ML SYRINGE SQ SCH (05:14)
[2021-12-22] MEDS ORDERED: carvediloL 6.25 MG TABLET PO SCH (08:00)
[2021-12-22] MEDS: Insulin LISPRO 300 UNITS/3 ML VIAL SUBQ SCH ×4 (08:16→20:45)
[2021-12-22] MEDS: Sacubitril/Valsartan 24/26 MG 1 TABLET PO SCH ×2 (08:58→20:42)
[2021-12-22] MEDS: *HR* Ticagrelor 90 MG TABLET PO SCH ×2 (08:59→20:42)
[2021-12-22] MEDS: Bumetanide 1 MG TABLET PO SCH (08:59)
[2021-12-22] MEDS: Aspirin 81 MG TAB.CHEW PO SCH (08:59)
[2021-12-22] MEDS: Magnesium Oxide 400 MG TABLET PO SCH (08:59)
[2021-12-22] MEDS: Nystatin POWDER 30 GM BOTTLE TP SCH ×2 (09:11→20:43)
[2021-12-22] MEDS: Insulin DETEMIR 100 UNIT/ML X5UNITS SUBQ SCH (09:15)
[2021-12-22] MEDS: carvediloL 6.25 MG TABLET PO SCH (17:10)
[2021-12-23 01:54] LABS: Basophils % 0.4 %; Eosinophils # 0.3 K/mcL (0.0-0.6); Eosinophils % 3.6 %; Hematocrit 26.9 % (35.3-44.9); Hemoglobin 8.3 g/dL (11.5-15.4); Immature Granulocytes % 0.6 % (0-4); Lymphocytes # 0.7 K/mcL (0.6-4.6); Lymphocytes % 8.4 %; Mean Corpuscular HGB Conc 30.9 g/dL (31.6-35.5); Mean Corpuscular Hemoglobin 27.1 pg (28.0-33.3); Mean Corpuscular Volume 87.9 fL (83.0-100.0); Mean Platelet Volume 10.3 fL (9.4-12.4); Monocytes # 0.6 K/mcL (0.0-1.3); Neutrophils # 6.8 K/mcL (1.6-8.9); Platelet Count 224 K/mcL (140-400); Red Blood Count 3.06 M/mcL (3.82-4.97); Red Cell Distribution Width 17.5 % (11.5-14.5); White Blood Count 8.4 K/mcL (4.3-11.1)
[2021-12-23 02:10] LABS: BUN/Creatinine Ratio 18 (6-26); Blood Urea Nitrogen 18 mg/dL (8-23); Calcium 8.8 mg/dL (8.6-10.3); Carbon Dioxide 34 mEq/L (23-29); Chloride 102 mEq/L (98-107); Glucose 207 mg/dL (70-105); Osmolality,Calculated 300 (280-300); Sodium 141 mEq/L (136-145); eGFR For African Americans > 60 (> 60); eGFR For Non-African Americans 54 (> 60)
[2021-12-23] MEDS: *HR* Enoxaparin 40 MG/0.4 ML SYRINGE SQ SCH (05:32)
[2021-12-23] MEDS ORDERED: Regadenoson 0.4 MG/5 ML SYRINGE IVP ONE (06:20)
[2021-12-23] MEDS: *HR* Ticagrelor 90 MG TABLET PO SCH ×2 (09:58→20:49)
[2021-12-23] MEDS: Insulin LISPRO 300 UNITS/3 ML VIAL SUBQ SCH ×4 (09:58→20:49)
[2021-12-23] MEDS: Bumetanide 1 MG TABLET PO SCH (09:58)
[2021-12-23] MEDS: *HR* Digoxin 0.125 MG TABLET PO SCH (09:59)
[2021-12-23] MEDS: Aspirin 81 MG TAB.CHEW PO SCH (10:00)
[2021-12-23] MEDS: Magnesium Oxide 400 MG TABLET PO SCH (10:00)
[2021-12-23] MEDS: Sacubitril/Valsartan 24/26 MG 1 TABLET PO SCH ×2 (10:00→20:49)
[2021-12-23] MEDS: carvediloL 6.25 MG TABLET PO SCH ×2 (10:00→17:13)
[2021-12-23] MEDS: Nystatin POWDER 30 GM BOTTLE TP SCH ×2 (10:01→20:50)
[2021-12-23] MEDS: Insulin DETEMIR 100 UNIT/ML X5UNITS SUBQ SCH (12:39)
[2021-12-24] MEDS: *HR* Enoxaparin 40 MG/0.4 ML SYRINGE SQ SCH (06:10)
[2021-12-24] MEDS: Insulin LISPRO 300 UNITS/3 ML VIAL SUBQ SCH ×4 (07:28→20:52)
[2021-12-24] MEDS: Insulin DETEMIR 100 UNIT/ML X5UNITS SUBQ SCH (07:29)
[2021-12-24] MEDS: *HR* Ticagrelor 90 MG TABLET PO SCH ×2 (07:49→20:50)
[2021-12-24] MEDS: Bumetanide 1 MG TABLET PO SCH (07:49)
[2021-12-24] MEDS: carvediloL 6.25 MG TABLET PO SCH ×2 (07:49→16:07)
[2021-12-24] MEDS: Aspirin 81 MG TAB.CHEW PO SCH (07:49)
[2021-12-24] MEDS: Sacubitril/Valsartan 24/26 MG 1 TABLET PO SCH ×2 (07:49→20:50)
[2021-12-24] MEDS: Nystatin POWDER 30 GM BOTTLE TP SCH ×2 (07:50→20:50)
[2021-12-24] MEDS: Magnesium Oxide 400 MG TABLET PO SCH (07:50)
[2021-12-24 09:46] LABS: Basophils % 0.4 %; Eosinophils # 0.3 K/mcL (0.0-0.6); Eosinophils % 4.2 %; Hematocrit 30.1 % (35.3-44.9); Hemoglobin 9.1 g/dL (11.5-15.4); Immature Granulocytes % 0.6 % (0-4); Lymphocytes # 0.5 K/mcL (0.6-4.6); Lymphocytes % 7.8 %; Mean Corpuscular HGB Conc 30.2 g/dL (31.6-35.5); Mean Corpuscular Hemoglobin 26.8 pg (28.0-33.3); Mean Corpuscular Volume 88.5 fL (83.0-100.0); Mean Platelet Volume 10.2 fL (9.4-12.4); Monocytes # 0.5 K/mcL (0.0-1.3); Monocytes % 7.1 %; Neutrophils # 5.6 K/mcL (1.6-8.9); Platelet Count 252 K/mcL (140-400); Red Cell Distribution Width 17.5 % (11.5-14.5); Segmented Neutrophils % 79.9 %; White Blood Count 6.9 K/mcL (4.3-11.1)
[2021-12-24 09:57] LABS: INR 1.1; Prothrombin Time 11.7 Seconds (9.4-12.1)
[2021-12-24 10:09] LABS: BUN/Creatinine Ratio 15 (6-26); Blood Urea Nitrogen 15 mg/dL (8-23); Calcium 9.3 mg/dL (8.6-10.3); Carbon Dioxide 37 mEq/L (23-29); Chloride 98 mEq/L (98-107); Glucose 254 mg/dL (70-105); Osmolality,Calculated 299 (280-300); Potassium 4.3 mEq/L (3.5-5.1); Sodium 140 mEq/L (136-145); eGFR For African Americans > 60 (> 60); eGFR For Non-African Americans 52 (> 60)
[2021-12-25] MEDS: *HR* Enoxaparin 40 MG/0.4 ML SYRINGE SQ SCH (05:43)
[2021-12-25] MEDS ORDERED: Insulin LISPRO 300 UNITS/3 ML VIAL SUBQ SCH (08:00)
[2021-12-25] MEDS: Insulin LISPRO 300 UNITS/3 ML VIAL SUBQ SCH ×5 (08:00→20:35)
[2021-12-25] MEDS: Sacubitril/Valsartan 24/26 MG 1 TABLET PO SCH ×2 (08:07→20:34)
[2021-12-25] MEDS: Insulin DETEMIR 100 UNIT/ML X5UNITS SUBQ SCH (08:07)
[2021-12-25] MEDS: Magnesium Oxide 400 MG TABLET PO SCH (08:07)
[2021-12-25] MEDS: *HR* Digoxin 0.125 MG TABLET PO SCH (08:07)
[2021-12-25] MEDS: Aspirin 81 MG TAB.CHEW PO SCH (08:07)
[2021-12-25] MEDS: Bumetanide 1 MG TABLET PO SCH (08:07)
[2021-12-25] MEDS: carvediloL 6.25 MG TABLET PO SCH ×2 (08:08→17:10)
[2021-12-25] MEDS: Nystatin POWDER 30 GM BOTTLE TP SCH ×2 (08:10→20:35)
[2021-12-25] MEDS: *HR* Ticagrelor 90 MG TABLET PO SCH ×2 (08:11→20:34)
[2021-12-25] MEDS ORDERED: *HR* Heparin 10,000 UNIT/10 ML VIAL ONE (12:13)
[2021-12-25] MEDS ORDERED: Heparin 1,000 UNITS/500 mL 500 ML ONE (12:13)
[2021-12-25] MEDS ORDERED: Nitroglycerin 1,000 MCG/5 ML VIAL IV ONE (12:13)
[2021-12-25] MEDS ORDERED: ISOVUE-370 200 ML INFUS..BTL ONE (12:13)
[2021-12-25] MEDS ORDERED: 0.9 % Sodium Chloride 2,000 ML ONE (12:13)
[2021-12-25] MEDS ORDERED: *HR* FentaNYL (PF) 100 MCG/2 ML VIAL ONE (12:44)
[2021-12-25] MEDS ORDERED: *HR* Midazolam HCl 2 MG/2 ML VIAL ONE (12:45)
[2021-12-26 05:15] LABS: Hematocrit 28.9 % (35.3-44.9); Hemoglobin 8.7 g/dL (11.5-15.4); Mean Corpuscular HGB Conc 30.1 g/dL (31.6-35.5); Mean Corpuscular Hemoglobin 26.7 pg (28.0-33.3); Mean Corpuscular Volume 88.7 fL (83.0-100.0); Mean Platelet Volume 10.3 fL (9.4-12.4); Platelet Count 250 K/mcL (140-400); Red Blood Count 3.26 M/mcL (3.82-4.97); Red Cell Distribution Width 17.6 % (11.5-14.5); White Blood Count 6.1 K/mcL (4.3-11.1)
[2021-12-26 05:38] LABS: BUN/Creatinine Ratio 24 (6-26); Blood Urea Nitrogen 25 mg/dL (8-23); Calcium 9.3 mg/dL (8.6-10.3); Carbon Dioxide 36 mEq/L (23-29); Chloride 97 mEq/L (98-107); Glucose 163 mg/dL (70-105); Osmolality,Calculated 296 (280-300); Potassium 4.1 mEq/L (3.5-5.1); Sodium 139 mEq/L (136-145); eGFR For African Americans > 60 (> 60); eGFR For Non-African Americans 51 (> 60)
[2021-12-26] MEDS: *HR* Enoxaparin 40 MG/0.4 ML SYRINGE SQ SCH (05:51)
[2021-12-26 07:13] VITALS: BP 120/54; O2SAT 96
[2021-12-26] MEDS: carvediloL 6.25 MG TABLET PO SCH (08:20)
[2021-12-26] MEDS: Bumetanide 1 MG TABLET PO SCH (08:21)
[2021-12-26] MEDS: Aspirin 81 MG TAB.CHEW PO SCH (08:21)
[2021-12-26] MEDS: Magnesium Oxide 400 MG TABLET PO SCH (08:21)
[2021-12-26] MEDS: *HR* Ticagrelor 90 MG TABLET PO SCH (08:21)
[2021-12-26] MEDS: Insulin LISPRO 300 UNITS/3 ML VIAL SUBQ SCH ×2 (08:42→11:31)
[2021-12-26] MEDS: Sacubitril/Valsartan 24/26 MG 1 TABLET PO SCH (08:52)
[2021-12-26] MEDS ORDERED: Insulin DETEMIR 100 UNIT/ML X5UNITS SUBQ SCH (09:00)
[2021-12-26] MEDS: Nystatin POWDER 30 GM BOTTLE TP SCH (11:12)
[2021-12-26 11:18] VITALS: PULSE 61; TEMP 97.7
== END 2021-12-26 15:05 | disposition home health service (06) | DRG 871 ==
LOC: 2NENU 12:04 → EMEROOARM 12:04 → 2NENU 15:02 → SUATTDRO 17:13 → ICNU 19:19 → 2NENU 12-19 10:16
PROVIDERS: ADMIT Internal Medicine; ATTEND Internal Medicine

== ENCOUNTER 2022-02-17 15:34 | Inpatient (IN) ==
[2022-02-17] MEDS ORDERED: cefTRIAXone 2,000 MG in 0.9 % Sodium Chloride 10 ML IVP ONE (16:07)
[2022-02-17] MEDS ORDERED: 0.9 % Sodium Chloride 1,000 ML IVC ONE (16:07)
[2022-02-17] MEDS ORDERED: Azithromycin 500 MG in 0.9 % Sodium Chloride 250 ML IVPB ONE (16:07)
[2022-02-17] MEDS ORDERED: Ipratropium Neb 0.5 MG NEBULIZER IH ONE (16:09)
[2022-02-17 16:23] LABS: VBG HCO3 29 mEq/L (21-27); VBG PCO2 49 mmHg (41-51); VBG PH 7.38 pH Units (7.32-7.42); VBG PO2 55 mmHg (25-50)
[2022-02-17 16:42] LABS: Eosinophils % 0.8 %; Hematocrit 25.8 % (35.3-44.9); Hemoglobin 7.9 g/dL (11.5-15.4); Immature Granulocytes % 0.5 % (0-4); Lymphocytes # 0.4 K/mcL (0.6-4.6); Lymphocytes % 10.2 %; Mean Corpuscular HGB Conc 30.6 g/dL (31.6-35.5); Mean Corpuscular Hemoglobin 26.1 pg (28.0-33.3); Mean Corpuscular Volume 85.1 fL (83.0-100.0); Mean Platelet Volume 10.7 fL (9.4-12.4); Monocytes # 0.3 K/mcL (0.0-1.3); Platelet Count 214 K/mcL (140-400); Red Blood Count 3.03 M/mcL (3.82-4.97); Red Cell Distribution Width 16.7 % (11.5-14.5); Segmented Neutrophils % 81.5 %; White Blood Count 3.7 K/mcL (4.3-11.1)
[2022-02-17 16:49] LABS: INR 1.2; Prothrombin Time 13.6 Seconds (9.4-12.1)
[2022-02-17 16:52] LABS: Activated Partial Thrombo Time 42.3 Seconds (26.0-36.0); Albumin 3.5 g/dL (3.5-5.7); Albumin/Globulin Ratio 1.1 (1.1-2.2); Bilirubin,Direct 0.1 mg/dL (0.0-0.2); Bilirubin,Indirect 0.3 mg/dL (0.0-1.0); Bilirubin,Total 0.4 mg/dL (0.3-1.0); Calcium 8.4 mg/dL (8.6-10.3); Digoxin 0.7 ng/mL (0.8-2.0); Globulin 3.3 g/dL (2.4-3.5); Potassium 4.2 mEq/L (3.5-5.1); Total Protein 6.8 g/dL (6.4-8.9); Troponin I 0.04 ng/mL (< 0.04)
[2022-02-17] MEDS ORDERED: Ondansetron 4 MG/2 ML VIAL IVP ONE (17:02)
[2022-02-17 18:00] LABS: Influenza A PCR Negative (Negative); Influenza B PCR Negative (Negative); Resp. Syncytial Virus PCR Negative (Negative)
[2022-02-17 18:01] LABS: SARS-CoV-2 by PCR (In House) Positive (Negative)
[2022-02-17] MEDS ORDERED: Naloxone 0.4 MG/ML INJ IVP PRN (21:06)
[2022-02-17] MEDS ORDERED: Ondansetron 4 MG/2 ML VIAL IVP PRN (21:06)
[2022-02-17] MEDS: Benzonatate 100 MG CAPSULE PO PRN (21:53)
[2022-02-17] MEDS: *HR* Heparin 5,000 UNIT/ML VIAL SQ SCH (21:53)
[2022-02-17 22:52] LABS: Magnesium 1.8 mg/dL (1.6-2.6); Phosphorous 3.6 mg/dL (2.7-4.5)
[2022-02-17 22:53] LABS: Troponin I 0.03 ng/mL (< 0.04)
[2022-02-17] MEDS: Ipratropium 1 PUFF INHALER IH SCH ×2 (22:58→23:03)
[2022-02-18] MEDS: Ipratropium 1 PUFF INHALER IH SCH ×6 (04:08→23:20)
[2022-02-18 05:14] LABS: Albumin 3.5 g/dL (3.5-5.7); Albumin/Globulin Ratio 1.1 (1.1-2.2); Bilirubin,Indirect 0.2 mg/dL (0.0-1.0); Bilirubin,Total 0.2 mg/dL (0.3-1.0); Calcium 8.1 mg/dL (8.6-10.3); Globulin 3.2 g/dL (2.4-3.5); Potassium 4.5 mEq/L (3.5-5.1); Total Protein 6.7 g/dL (6.4-8.9)
[2022-02-18 05:26] LABS: Hematocrit 26.7 % (35.3-44.9); Mean Corpuscular Hemoglobin 25.8 pg (28.0-33.3); Mean Corpuscular Volume 86.1 fL (83.0-100.0); Mean Platelet Volume 10.4 fL (9.4-12.4); Platelet Count 202 K/mcL (140-400); Red Cell Distribution Width 16.7 % (11.5-14.5); White Blood Count 2.1 K/mcL (4.3-11.1)
[2022-02-18] MEDS: *HR* Heparin 5,000 UNIT/ML VIAL SQ SCH ×3 (06:45→22:36)
[2022-02-18] MEDS: Benzonatate 100 MG CAPSULE PO PRN (06:47)
[2022-02-18] MEDS: Dexamethasone Sodium Phos/PF 10 MG/ML VIAL IVP SCH (08:18)
[2022-02-18] MEDS: Lactobacillus 1 EACH CAP.SPRINK PO SCH ×2 (08:18→22:35)
[2022-02-18] MEDS: Magic Mouthwash 10 ML UD Cup PO SCH ×3 (08:18→17:29)
[2022-02-18] MEDS: cefTRIAXone 2,000 MG in 0.9 % Sodium Chloride 20 ML IVP SCH (08:19)
[2022-02-18] MEDS ORDERED: Insulin DETEMIR 100 UNIT/ML X5UNITS SUBQ SCH (09:00)
[2022-02-18 09:25] LABS: Digoxin 0.6 ng/mL (0.8-2.0)
[2022-02-18] MEDS: *HR* Digoxin 0.125 MG TABLET PO SCH (10:26)
[2022-02-18] MEDS ORDERED: *HR* HYDROcodone/Acet 5/325 mg TABLET PO PRN (16:40)
[2022-02-18] MEDS ORDERED: Nitroglycerin 0.4 MG TAB.SUBL SL PRN (16:40)
[2022-02-18] MEDS ORDERED: *HR* Dextrose 50 % in Water (Syg) 50 ML SYRINGE IVP PRN (17:07)
[2022-02-18] MEDS ORDERED: Dextrose Gel 15 GM/37.5 ML TUBE PO PRN ×2 (17:07)
[2022-02-18] MEDS ORDERED: D5% in Water 1,000 ML IVC PRN (17:07)
[2022-02-18] MEDS: Insulin LISPRO 300 UNITS/3 ML VIAL SUBQ SCH ×2 (17:29→22:36)
[2022-02-18] MEDS: Azithromycin 500 MG in 0.9 % Sodium Chloride 250 ML IVPB SCH (17:31)
[2022-02-18] MEDS: Sacubitril/Valsartan 24/26 MG 1 TABLET PO SCH (22:34)
[2022-02-18] MEDS: carvediloL 6.25 MG TABLET PO SCH (22:34)
[2022-02-18] MEDS: *HR* Ticagrelor 90 MG TABLET PO SCH (22:35)
[2022-02-18] MEDS: Bumetanide 1 MG TABLET PO SCH (22:35)
[2022-02-18] MEDS: Insulin DETEMIR 100 UNIT/ML X5UNITS SUBQ SCH (22:45)
[2022-02-19] MEDS ORDERED: *HR* Metoprolol 5 MG/5 ML VIAL IVP PRN
[2022-02-19] MEDS: Ipratropium 1 PUFF INHALER IH SCH ×6 (03:56→22:48)
[2022-02-19 04:56] LABS: Basophils % 0.2 %; Hematocrit 27.2 % (35.3-44.9); Hemoglobin 8.2 g/dL (11.5-15.4); Immature Granulocytes % 0.4 % (0-4); Lymphocytes # 0.5 K/mcL (0.6-4.6); Lymphocytes % 10.1 %; Mean Corpuscular HGB Conc 30.1 g/dL (31.6-35.5); Mean Corpuscular Hemoglobin 25.7 pg (28.0-33.3); Mean Corpuscular Volume 85.3 fL (83.0-100.0); Mean Platelet Volume 10.2 fL (9.4-12.4); Monocytes # 0.3 K/mcL (0.0-1.3); Monocytes % 6.8 %; Platelet Count 229 K/mcL (140-400); Red Blood Count 3.19 M/mcL (3.82-4.97); Red Cell Distribution Width 16.9 % (11.5-14.5); Segmented Neutrophils % 82.5 %
[2022-02-19 04:57] LABS: White Blood Count 4.8 K/mcL (4.3-11.1)
[2022-02-19 05:15] LABS: Calcium 8.6 mg/dL (8.6-10.3); Potassium 3.8 mEq/L (3.5-5.1)
[2022-02-19] MEDS: *HR* Heparin 5,000 UNIT/ML VIAL SQ SCH ×3 (05:42→21:07)
[2022-02-19] MEDS: cefTRIAXone 2,000 MG in 0.9 % Sodium Chloride 20 ML IVP SCH (08:24)
[2022-02-19] MEDS: Dexamethasone Sodium Phos/PF 10 MG/ML VIAL IVP SCH (08:24)
[2022-02-19] MEDS: Insulin LISPRO 300 UNITS/3 ML VIAL SUBQ SCH ×4 (08:33→21:06)
[2022-02-19] MEDS: Magic Mouthwash 10 ML UD Cup PO SCH ×3 (08:33→16:13)
[2022-02-19] MEDS: Aspirin 81 MG TAB.CHEW PO SCH (08:34)
[2022-02-19] MEDS: Lactobacillus 1 EACH CAP.SPRINK PO SCH ×2 (08:35→21:06)
[2022-02-19] MEDS: carvediloL 6.25 MG TABLET PO SCH ×2 (09:37→21:06)
[2022-02-19] MEDS: Sacubitril/Valsartan 24/26 MG 1 TABLET PO SCH ×2 (09:41→21:06)
[2022-02-19] MEDS: Bumetanide 1 MG TABLET PO SCH ×2 (09:41→21:06)
[2022-02-19] MEDS: amLODIPine 5 MG TABLET PO SCH (09:41)
[2022-02-19] MEDS: *HR* Ticagrelor 90 MG TABLET PO SCH ×2 (09:41→21:06)
[2022-02-19] MEDS: Insulin DETEMIR 100 UNIT/ML X5UNITS SUBQ SCH ×2 (09:47→21:07)
[2022-02-19] MEDS: Azithromycin 500 MG in 0.9 % Sodium Chloride 250 ML IVPB SCH (16:12)
[2022-02-20] MEDS: Ipratropium 1 PUFF INHALER IH SCH ×5 (03:18→20:42)
[2022-02-20 05:28] LABS: Basophils % 0.2 %; Hematocrit 27.3 % (35.3-44.9); Hemoglobin 8.2 g/dL (11.5-15.4); Immature Granulocytes % 0.7 % (0-4); Lymphocytes # 0.5 K/mcL (0.6-4.6); Lymphocytes % 9.6 %; Mean Corpuscular Hemoglobin 26.2 pg (28.0-33.3); Mean Corpuscular Volume 87.2 fL (83.0-100.0); Mean Platelet Volume 10.1 fL (9.4-12.4); Monocytes # 0.3 K/mcL (0.0-1.3); Monocytes % 5.7 %; Neutrophils # 4.5 K/mcL (1.6-8.9); Platelet Count 230 K/mcL (140-400); Red Blood Count 3.13 M/mcL (3.82-4.97); Red Cell Distribution Width 16.9 % (11.5-14.5); Segmented Neutrophils % 83.8 %; White Blood Count 5.4 K/mcL (4.3-11.1)
[2022-02-20] MEDS: *HR* Heparin 5,000 UNIT/ML VIAL SQ SCH ×3 (05:37→20:23)
[2022-02-20 05:42] LABS: Calcium 8.8 mg/dL (8.6-10.3)
[2022-02-20] MEDS: Magic Mouthwash 10 ML UD Cup PO SCH ×3 (07:30→17:09)
[2022-02-20] MEDS: Insulin LISPRO 300 UNITS/3 ML VIAL SUBQ SCH ×4 (08:33→20:28)
[2022-02-20] MEDS ORDERED: Iopamidol - 370 500 ML MLS IVP ONE (08:43)
[2022-02-20] MEDS: Bumetanide 1 MG TABLET PO SCH ×2 (11:11→20:22)
[2022-02-20] MEDS: amLODIPine 5 MG TABLET PO SCH (11:12)
[2022-02-20] MEDS: *HR* Ticagrelor 90 MG TABLET PO SCH ×2 (11:18→20:22)
[2022-02-20] MEDS: Sacubitril/Valsartan 24/26 MG 1 TABLET PO SCH ×2 (11:18→20:22)
[2022-02-20] MEDS: Lactobacillus 1 EACH CAP.SPRINK PO SCH ×2 (11:19→20:22)
[2022-02-20] MEDS: *HR* Digoxin 0.125 MG TABLET PO SCH ×2 (11:19→11:21)
[2022-02-20] MEDS: Insulin DETEMIR 100 UNIT/ML X5UNITS SUBQ SCH ×2 (11:19→20:28)
[2022-02-20] MEDS: Dexamethasone Sodium Phos/PF 10 MG/ML VIAL IVP SCH (11:19)
[2022-02-20] MEDS: Aspirin 81 MG TAB.CHEW PO SCH (11:19)
[2022-02-20] MEDS: cefTRIAXone 2,000 MG in 0.9 % Sodium Chloride 20 ML IVP SCH (11:22)
[2022-02-20] MEDS: carvediloL 6.25 MG TABLET PO SCH (11:28)
[2022-02-20] MEDS ORDERED: *HR* Metoprolol 5 MG/5 ML VIAL IVP ONE (15:12)
[2022-02-20] MEDS: Azithromycin 500 MG in 0.9 % Sodium Chloride 250 ML IVPB SCH (17:10)
[2022-02-21] MEDS: Ipratropium 1 PUFF INHALER IH SCH ×6 (00:02→19:52)
[2022-02-21] MEDS: *HR* Heparin 5,000 UNIT/ML VIAL SQ SCH ×3 (05:42→20:52)
[2022-02-21 05:53] LABS: Hemoglobin 8.4 g/dL (11.5-15.4); Immature Granulocytes % 1.5 % (0-4); Lymphocytes # 0.3 K/mcL (0.6-4.6); Lymphocytes % 7.9 %; Mean Corpuscular Hemoglobin 25.9 pg (28.0-33.3); Mean Corpuscular Volume 86.4 fL (83.0-100.0); Monocytes # 0.3 K/mcL (0.0-1.3); Monocytes % 7.4 %; Neutrophils # 3.4 K/mcL (1.6-8.9); Platelet Count 225 K/mcL (140-400); Red Blood Count 3.24 M/mcL (3.82-4.97); Red Cell Distribution Width 17.1 % (11.5-14.5); Segmented Neutrophils % 83.2 %; White Blood Count 4.1 K/mcL (4.3-11.1)
[2022-02-21 06:13] LABS: BUN/Creatinine Ratio 37 (6-26); Blood Urea Nitrogen 35 mg/dL (8-23); Calcium 8.6 mg/dL (8.6-10.3); Carbon Dioxide 28 mEq/L (23-29); Chloride 107 mEq/L (98-107); Glucose 122 mg/dL (70-105); Osmolality,Calculated 299 (280-300); Potassium 4.3 mEq/L (3.5-5.1); Sodium 140 mEq/L (136-145); eGFR For African Americans > 60 (> 60); eGFR For Non-African Americans 56 (> 60)
[2022-02-21] MEDS: Insulin LISPRO 300 UNITS/3 ML VIAL SUBQ SCH ×4 (07:52→20:53)
[2022-02-21 08:09] LABS: C-Reactive Protein 21 mg/L (Less than 10)
[2022-02-21] MEDS ORDERED: Furosemide 20 MG/2 ML VIAL IVP ONE (08:36)
[2022-02-21] MEDS ORDERED: *HR* Digoxin 0.5 MG/2 ML AMPUL IVP ONE (08:40)
[2022-02-21] MEDS: Magic Mouthwash 10 ML UD Cup PO SCH ×3 (09:52→16:12)
[2022-02-21] MEDS: Dexamethasone Sodium Phos/PF 10 MG/ML VIAL IVP SCH (09:53)
[2022-02-21] MEDS: cefTRIAXone 2,000 MG in 0.9 % Sodium Chloride 20 ML IVP SCH (09:54)
[2022-02-21] MEDS: Aspirin 81 MG TAB.CHEW PO SCH (09:54)
[2022-02-21] MEDS: Lactobacillus 1 EACH CAP.SPRINK PO SCH ×2 (09:55→20:52)
[2022-02-21] MEDS: *HR* Ticagrelor 90 MG TABLET PO SCH ×2 (09:55→20:52)
[2022-02-21] MEDS: Bumetanide 1 MG TABLET PO SCH (09:55)
[2022-02-21] MEDS: Insulin DETEMIR 100 UNIT/ML X5UNITS SUBQ SCH ×2 (10:00→20:53)
[2022-02-21] MEDS ORDERED: *HR* Digoxin 0.5 MG/2 ML AMPUL IVP SCH (12:00)
[2022-02-21] MEDS: Azithromycin 250 MG TABLET PO SCH (16:17)
[2022-02-21] MEDS: Furosemide 20 MG/2 ML VIAL IVP SCH (20:53)
[2022-02-22] MEDS: Ipratropium 1 PUFF INHALER IH SCH ×7 (00:01→23:38)
[2022-02-22] MEDS: *HR* Heparin 5,000 UNIT/ML VIAL SQ SCH ×3 (06:26→21:19)
[2022-02-22] MEDS: Insulin LISPRO 300 UNITS/3 ML VIAL SUBQ SCH ×4 (07:55→21:17)
[2022-02-22] MEDS: Magic Mouthwash 10 ML UD Cup PO SCH ×3 (08:19→17:17)
[2022-02-22] MEDS: *HR* Ticagrelor 90 MG TABLET PO SCH ×2 (08:20→21:18)
[2022-02-22] MEDS: *HR* Digoxin 0.125 MG TABLET PO SCH (08:20)
[2022-02-22] MEDS: Furosemide 20 MG/2 ML VIAL IVP SCH ×2 (08:20→21:18)
[2022-02-22] MEDS: Lactobacillus 1 EACH CAP.SPRINK PO SCH ×2 (08:20→21:18)
[2022-02-22] MEDS: Aspirin 81 MG TAB.CHEW PO SCH (08:20)
[2022-02-22] MEDS: cefTRIAXone 2,000 MG in 0.9 % Sodium Chloride 20 ML IVP SCH (08:21)
[2022-02-22] MEDS: Dexamethasone Sodium Phos/PF 10 MG/ML VIAL IVP SCH (08:21)
[2022-02-22] MEDS: Insulin DETEMIR 100 UNIT/ML X5UNITS SUBQ SCH ×2 (08:23→21:19)
[2022-02-22] MEDS: Sacubitril/Valsartan 24/26 MG 1 TABLET PO SCH ×2 (09:43→21:18)
[2022-02-22] MEDS: Metoprolol XL (24 HR) Succ 50 MG TAB.ER.24H PO SCH (12:41)
[2022-02-22] MEDS: Azithromycin 250 MG TABLET PO SCH (17:17)
[2022-02-23] MEDS: Ipratropium 1 PUFF INHALER IH SCH ×6 (03:53→23:08)
[2022-02-23] MEDS: *HR* Heparin 5,000 UNIT/ML VIAL SQ SCH ×3 (05:09→20:39)
[2022-02-23] MEDS: Insulin LISPRO 300 UNITS/3 ML VIAL SUBQ SCH ×4 (07:44→20:38)
[2022-02-23] MEDS: Magic Mouthwash 10 ML UD Cup PO SCH ×3 (08:26→18:01)
[2022-02-23] MEDS: Dexamethasone Sodium Phos/PF 10 MG/ML VIAL IVP SCH (08:27)
[2022-02-23] MEDS: Sacubitril/Valsartan 24/26 MG 1 TABLET PO SCH ×2 (08:27→23:30)
[2022-02-23] MEDS: *HR* Ticagrelor 90 MG TABLET PO SCH ×2 (08:27→20:39)
[2022-02-23] MEDS: Metoprolol XL (24 HR) Succ 50 MG TAB.ER.24H PO SCH (08:27)
[2022-02-23] MEDS: Aspirin 81 MG TAB.CHEW PO SCH (08:27)
[2022-02-23] MEDS: Lactobacillus 1 EACH CAP.SPRINK PO SCH ×2 (08:27→20:39)
[2022-02-23] MEDS: cefTRIAXone 2,000 MG in 0.9 % Sodium Chloride 20 ML IVP SCH (08:28)
[2022-02-23] MEDS: Furosemide 20 MG/2 ML VIAL IVP SCH ×2 (08:28→20:38)
[2022-02-23] MEDS: Insulin DETEMIR 100 UNIT/ML X5UNITS SUBQ SCH ×2 (08:44→20:42)
[2022-02-23 12:24] LABS: Basophils % 0.2 %; Eosinophils # 0.1 K/mcL (0.0-0.6); Eosinophils % 0.9 %; Hematocrit 29.7 % (35.3-44.9); Immature Granulocytes % 1.4 % (0-4); Lymphocytes # 0.4 K/mcL (0.6-4.6); Lymphocytes % 3.4 %; Mean Corpuscular HGB Conc 30.3 g/dL (31.6-35.5); Mean Corpuscular Hemoglobin 26.2 pg (28.0-33.3); Mean Corpuscular Volume 86.3 fL (83.0-100.0); Mean Platelet Volume 10.3 fL (9.4-12.4); Monocytes # 0.4 K/mcL (0.0-1.3); Monocytes % 2.9 %; Neutrophils # 11.2 K/mcL (1.6-8.9); Platelet Count 315 K/mcL (140-400); Red Blood Count 3.44 M/mcL (3.82-4.97); Red Cell Distribution Width 17.2 % (11.5-14.5); Segmented Neutrophils % 91.2 %; White Blood Count 12.3 K/mcL (4.3-11.1)
[2022-02-23 12:45] LABS: Alanine Aminotransferase 22 Units/L (7-52); Albumin 3.5 g/dL (3.5-5.7); Albumin/Globulin Ratio 1.1 (1.1-2.2); Alkaline Phosphatase 43 Units/L (34-104); Aspartate Amino Transferase 25 Units/L (13-39); BUN/Creatinine Ratio 34 (6-26); Bilirubin,Total 0.3 mg/dL (0.3-1.0); Blood Urea Nitrogen 35 mg/dL (8-23); Carbon Dioxide 28 mEq/L (23-29); Chloride 104 mEq/L (98-107); Globulin 3.3 g/dL (2.4-3.5); Glucose 159 mg/dL (70-105); Magnesium 1.7 mg/dL (1.6-2.6); Osmolality,Calculated 301 (280-300); Phosphorous 3.2 mg/dL (2.7-4.5); Potassium 4.5 mEq/L (3.5-5.1); Sodium 140 mEq/L (136-145); Total Protein 6.8 g/dL (6.4-8.9); eGFR For African Americans > 60 (> 60); eGFR For Non-African Americans 52 (> 60)
[2022-02-23] MEDS: Azithromycin 250 MG TABLET PO SCH (18:01)
[2022-02-23] MEDS: Melatonin 3 MG TABLET PO PRN (20:39)
[2022-02-24 02:17] LABS: Basophils % 0.4 %; Eosinophils # 0.1 K/mcL (0.0-0.6); Eosinophils % 0.8 %; Hematocrit 27.7 % (35.3-44.9); Hemoglobin 8.3 g/dL (11.5-15.4); Immature Granulocytes % 1.8 % (0-4); Lymphocytes # 0.6 K/mcL (0.6-4.6); Lymphocytes % 7.4 %; Mean Corpuscular Hemoglobin 25.6 pg (28.0-33.3); Mean Corpuscular Volume 85.5 fL (83.0-100.0); Mean Platelet Volume 10.3 fL (9.4-12.4); Monocytes # 0.5 K/mcL (0.0-1.3); Monocytes % 6.7 %; Neutrophils # 6.6 K/mcL (1.6-8.9); Nucleated Red Blood Cells 0.3 /100 WBC (0); Platelet Count 327 K/mcL (140-400); Red Blood Count 3.24 M/mcL (3.82-4.97); Red Cell Distribution Width 17.2 % (11.5-14.5); Segmented Neutrophils % 82.9 %; White Blood Count 7.9 K/mcL (4.3-11.1)
[2022-02-24 02:36] LABS: Albumin 3.3 g/dL (3.5-5.7); Albumin/Globulin Ratio 1.1 (1.1-2.2); Bilirubin,Total 0.3 mg/dL (0.3-1.0); Calcium 9.1 mg/dL (8.6-10.3); Globulin 3.1 g/dL (2.4-3.5); Magnesium 1.7 mg/dL (1.6-2.6); Phosphorous 3.4 mg/dL (2.7-4.5); Potassium 4.2 mEq/L (3.5-5.1); Total Protein 6.4 g/dL (6.4-8.9)
[2022-02-24] MEDS: Ipratropium 1 PUFF INHALER IH SCH ×6 (04:17→23:50)
[2022-02-24] MEDS: *HR* Heparin 5,000 UNIT/ML VIAL SQ SCH ×3 (06:23→21:41)
[2022-02-24] MEDS: *HR* Digoxin 0.125 MG TABLET PO SCH (08:31)
[2022-02-24] MEDS: *HR* Ticagrelor 90 MG TABLET PO SCH ×2 (08:31→21:53)
[2022-02-24] MEDS: Aspirin 81 MG TAB.CHEW PO SCH (08:32)
[2022-02-24] MEDS: Metoprolol XL (24 HR) Succ 50 MG TAB.ER.24H PO SCH (08:32)
[2022-02-24] MEDS: Lactobacillus 1 EACH CAP.SPRINK PO SCH ×2 (08:33→21:41)
[2022-02-24] MEDS: Furosemide 20 MG/2 ML VIAL IVP SCH ×2 (08:33→21:41)
[2022-02-24] MEDS: Sacubitril/Valsartan 24/26 MG 1 TABLET PO SCH ×2 (08:33→21:53)
[2022-02-24] MEDS: Dexamethasone Sodium Phos/PF 10 MG/ML VIAL IVP SCH (08:33)
[2022-02-24] MEDS: Magic Mouthwash 10 ML UD Cup PO SCH ×3 (08:34→17:26)
[2022-02-24] MEDS: Insulin LISPRO 300 UNITS/3 ML VIAL SUBQ SCH ×4 (08:34→21:43)
[2022-02-24] MEDS: cefTRIAXone 2,000 MG in 0.9 % Sodium Chloride 20 ML IVP SCH (08:48)
[2022-02-24] MEDS: Insulin DETEMIR 100 UNIT/ML X5UNITS SUBQ SCH ×2 (08:48→21:54)
[2022-02-24] MEDS: Azithromycin 250 MG TABLET PO SCH (17:26)
[2022-02-24] MEDS: Melatonin 3 MG TABLET PO PRN (21:41)
[2022-02-25] MEDS: Ipratropium 1 PUFF INHALER IH SCH ×3 (03:49→11:42)
[2022-02-25 03:57] LABS: Basophils % 0.2 %; Eosinophils # 0.1 K/mcL (0.0-0.6); Eosinophils % 1.2 %; Hematocrit 28.2 % (35.3-44.9); Hemoglobin 8.6 g/dL (11.5-15.4); Immature Granulocytes % 1.9 % (0-4); Lymphocytes # 0.7 K/mcL (0.6-4.6); Lymphocytes % 8.3 %; Mean Corpuscular HGB Conc 30.5 g/dL (31.6-35.5); Mean Corpuscular Volume 85.2 fL (83.0-100.0); Mean Platelet Volume 10.3 fL (9.4-12.4); Monocytes # 0.6 K/mcL (0.0-1.3); Monocytes % 7.3 %; Neutrophils # 6.7 K/mcL (1.6-8.9); Platelet Count 341 K/mcL (140-400); Red Blood Count 3.31 M/mcL (3.82-4.97); Red Cell Distribution Width 17.5 % (11.5-14.5); Segmented Neutrophils % 81.1 %; White Blood Count 8.2 K/mcL (4.3-11.1)
[2022-02-25 04:19] LABS: Albumin 3.5 g/dL (3.5-5.7); Albumin/Globulin Ratio 1.2 (1.1-2.2); Bilirubin,Total 0.3 mg/dL (0.3-1.0); Calcium 9.4 mg/dL (8.6-10.3); Magnesium 1.8 mg/dL (1.6-2.6); Phosphorous 3.7 mg/dL (2.7-4.5); Potassium 4.5 mEq/L (3.5-5.1); Total Protein 6.5 g/dL (6.4-8.9)
[2022-02-25 05:02] VITALS: BP 102/61; PULSE 125; TEMP 98.1
[2022-02-25] MEDS: *HR* Heparin 5,000 UNIT/ML VIAL SQ SCH (06:10)
[2022-02-25] MEDS ORDERED: 0.9 % Sodium Chloride 1,000 ML IVC SCH (07:45)
[2022-02-25] MEDS: Insulin LISPRO 300 UNITS/3 ML VIAL SUBQ SCH (08:34)
[2022-02-25] MEDS: Sacubitril/Valsartan 24/26 MG 1 TABLET PO SCH (08:35)
[2022-02-25] MEDS: Aspirin 81 MG TAB.CHEW PO SCH (08:35)
[2022-02-25] MEDS: Furosemide 20 MG/2 ML VIAL IVP SCH (08:36)
[2022-02-25] MEDS: *HR* Ticagrelor 90 MG TABLET PO SCH (08:36)
[2022-02-25] MEDS: Metoprolol XL (24 HR) Succ 50 MG TAB.ER.24H PO SCH (08:36)
[2022-02-25] MEDS: Lactobacillus 1 EACH CAP.SPRINK PO SCH (08:36)
[2022-02-25] MEDS: Dexamethasone Sodium Phos/PF 10 MG/ML VIAL IVP SCH (08:37)
[2022-02-25] MEDS: cefTRIAXone 2,000 MG in 0.9 % Sodium Chloride 20 ML IVP SCH (08:38)
[2022-02-25] MEDS: Magic Mouthwash 10 ML UD Cup PO SCH (08:46)
[2022-02-25] MEDS: Insulin DETEMIR 100 UNIT/ML X5UNITS SUBQ SCH (08:51)
[2022-02-25 11:43] VITALS: O2SAT 100
== END 2022-02-25 13:07 | disposition home or self-care (01) | DRG 871 ==
LOC: 3NENU 15:34 → EMEROOARM 15:34 → SUATTDRO 20:42 → 3NENU 21:14
PROVIDERS: ADMIT Internal Medicine; ATTEND Internal Medicine

== ENCOUNTER 2022-03-25 08:17 | Inpatient (IN) ==
[2022-03-25] MEDS ORDERED: Aspirin 81 MG TAB.CHEW PO STA (08:47)
[2022-03-25] MEDS ORDERED: Iopamidol - 370 500 ML MLS IVP ONE (09:02)
[2022-03-25] MEDS ORDERED: Morphine Sulfate 2 MG/ML SYRINGE IVP ONE (09:23)
[2022-03-25 10:02] LABS: Basophils % 0.2 %; Eosinophils # 0.1 K/mcL (0.0-0.6); Eosinophils % 0.4 %; Hemoglobin 8.7 g/dL (11.5-15.4); Immature Granulocytes % 0.6 % (0-4); Lymphocytes # 0.4 K/mcL (0.6-4.6); Lymphocytes % 2.2 %; Mean Corpuscular Volume 83.3 fL (83.0-100.0); Mean Platelet Volume 10.1 fL (9.4-12.4); Monocytes # 0.8 K/mcL (0.0-1.3); Monocytes % 4.2 %; Platelet Count 450 K/mcL (140-400); Red Blood Count 3.48 M/mcL (3.82-4.97); Red Cell Distribution Width 17.6 % (11.5-14.5); Segmented Neutrophils % 92.4 %; White Blood Count 18.4 K/mcL (4.3-11.1)
[2022-03-25 10:08] LABS: INR 1.4; Prothrombin Time 15.6 Seconds (9.4-12.1)
[2022-03-25 10:11] LABS: Activated Partial Thrombo Time 45.4 Seconds (26.0-36.0)
[2022-03-25 10:22] LABS: Calcium 9.2 mg/dL (8.6-10.3); Potassium 5.4 mEq/L (3.5-5.1); Troponin I 0.03 ng/mL (< 0.04)
[2022-03-25] MEDS ORDERED: Ondansetron 4 MG/2 ML VIAL IVP ONE (11:34)
[2022-03-25] MEDS ORDERED: Furosemide 40 MG/4 ML VIAL IVP ONE (11:49)
[2022-03-25] MEDS ORDERED: Ondansetron 4 MG/2 ML VIAL IVP PRN (13:07)
[2022-03-25] MEDS ORDERED: Acetaminophen 325 MG TABLET PO PRN (13:07)
[2022-03-25] MEDS ORDERED: Naloxone 0.4 MG/ML INJ IVP PRN (13:07)
[2022-03-25] MEDS ORDERED: Melatonin 3 MG TABLET PO PRN (13:07)
[2022-03-25 13:18] LABS: Albumin 3.7 g/dL (3.5-5.7); Bilirubin,Direct 0.1 mg/dL (0.0-0.2); Bilirubin,Indirect 0.4 mg/dL (0.0-1.0); Bilirubin,Total 0.5 mg/dL (0.3-1.0); Globulin 3.7 g/dL (2.4-3.5); Total Protein 7.4 g/dL (6.4-8.9)
[2022-03-25] MEDS: Metoprolol XL (24 HR) Succ 50 MG TAB.ER.24H PO SCH (14:18)
[2022-03-25 15:04] LABS: Total Protein,Pleural Fluid 2.2 g/dL
[2022-03-25 16:57] LABS: Appearance of Pleural Fl Cloudy (Clear); Basophils,Pleural Fluid 0 %
[2022-03-25 17:20] LABS: RBC,Pleural Fluid 9000 RBC/mcL
[2022-03-25] MEDS: *HR* Ticagrelor 90 MG TABLET PO SCH (20:17)
[2022-03-25] MEDS: Sacubitril/Valsartan 24/26 MG 1 TABLET PO SCH (20:17)
[2022-03-26 03:51] LABS: Hematocrit 27.8 % (35.3-44.9); Hemoglobin 8.2 g/dL (11.5-15.4); Mean Corpuscular HGB Conc 29.5 g/dL (31.6-35.5); Mean Corpuscular Hemoglobin 24.3 pg (28.0-33.3); Mean Corpuscular Volume 82.2 fL (83.0-100.0); Mean Platelet Volume 10.2 fL (9.4-12.4); Platelet Count 419 K/mcL (140-400); Red Blood Count 3.38 M/mcL (3.82-4.97); Red Cell Distribution Width 17.6 % (11.5-14.5); White Blood Count 13.7 K/mcL (4.3-11.1)
[2022-03-26 04:13] LABS: Calcium 9.2 mg/dL (8.6-10.3); Magnesium 1.8 mg/dL (1.6-2.6); Potassium 5.3 mEq/L (3.5-5.1)
[2022-03-26] MEDS ORDERED: Insulin DETEMIR 100 UNIT/ML X5UNITS SUBQ SCH (09:00)
[2022-03-26] MEDS: Aspirin 81 MG TAB.CHEW PO SCH (09:32)
[2022-03-26] MEDS: Metoprolol XL (24 HR) Succ 50 MG TAB.ER.24H PO SCH (09:32)
[2022-03-26] MEDS: *HR* Ticagrelor 90 MG TABLET PO SCH ×2 (09:32→20:07)
[2022-03-26] MEDS: Sacubitril/Valsartan 24/26 MG 1 TABLET PO SCH ×2 (09:32→20:06)
[2022-03-26] MEDS: *HR* Digoxin 0.125 MG TABLET PO SCH (15:19)
[2022-03-26] MEDS: Bumetanide 1 MG TABLET PO SCH (18:19)
[2022-03-27 02:56] LABS: Hematocrit 25.2 % (35.3-44.9); Hemoglobin 7.7 g/dL (11.5-15.4); Mean Corpuscular HGB Conc 30.6 g/dL (31.6-35.5); Mean Corpuscular Hemoglobin 24.8 pg (28.0-33.3); Mean Platelet Volume 10.4 fL (9.4-12.4); Platelet Count 350 K/mcL (140-400); Red Blood Count 3.11 M/mcL (3.82-4.97); Red Cell Distribution Width 17.4 % (11.5-14.5); White Blood Count 12.4 K/mcL (4.3-11.1)
[2022-03-27 03:15] LABS: Potassium 4.4 mEq/L (3.5-5.1)
[2022-03-27] MEDS: Sacubitril/Valsartan 24/26 MG 1 TABLET PO SCH ×2 (08:17→20:53)
[2022-03-27] MEDS: *HR* Heparin 5,000 UNIT/ML VIAL SQ SCH ×3 (08:17→20:53)
[2022-03-27] MEDS: Bumetanide 1 MG TABLET PO SCH ×2 (08:18→16:21)
[2022-03-27] MEDS: *HR* Ticagrelor 90 MG TABLET PO SCH ×2 (08:18→20:53)
[2022-03-27] MEDS: Aspirin 81 MG TAB.CHEW PO SCH (08:18)
[2022-03-27] MEDS: Metoprolol XL (24 HR) Succ 50 MG TAB.ER.24H PO SCH (08:18)
[2022-03-27] MEDS: Insulin DETEMIR 100 UNIT/ML X5UNITS SUBQ SCH (08:47)
[2022-03-27] MEDS ORDERED: Metoprolol XL (24 HR) Succ 25 MG TAB.ER.24H PO ONE (11:07)
[2022-03-27 20:06] LABS: Fluid Source for Cholesterol PLEURAL FLUID; Fluid Source for Triglycerides PLEURAL FLUID
[2022-03-27] MEDS ORDERED: Metoprolol XL (24 HR) Succ 50 MG TAB.ER.24H PO SCH (21:00)
[2022-03-28 03:48] LABS: Calcium 9.5 mg/dL (8.6-10.3); Potassium 4.6 mEq/L (3.5-5.1)
[2022-03-28 03:58] LABS: Hematocrit 26.8 % (35.3-44.9); Mean Corpuscular HGB Conc 29.9 g/dL (31.6-35.5); Mean Corpuscular Hemoglobin 24.4 pg (28.0-33.3); Mean Corpuscular Volume 81.7 fL (83.0-100.0); Mean Platelet Volume 10.2 fL (9.4-12.4); Platelet Count 391 K/mcL (140-400); Red Blood Count 3.28 M/mcL (3.82-4.97); Red Cell Distribution Width 17.3 % (11.5-14.5); White Blood Count 9.6 K/mcL (4.3-11.1)
[2022-03-28] MEDS: *HR* Heparin 5,000 UNIT/ML VIAL SQ SCH ×3 (05:22→21:58)
[2022-03-28 05:36] LABS: Bacteria,Urine Few per hpf (None-Few); Bilirubin,Urine Negative (Negative); Blood,Urine Negative (Negative); Budding Yeast,Urine Few per hpf (None Seen); Clarity,Urine Clear (Clear); Color,Urine Light-Yellow (Yellow); Glucose,Urine (UA) >=1000 mg/dL (Normal); Ketones,Urine Negative (Negative); Leukocyte Esterase,Urine Large (Negative); Mucus,Urine Few per lpf (None-Few); Nitrite,Urine Negative (Negative); PH,Urine 5.5 pH Units (5.0-8.0); Protein,Urine Trace mg/dL (Neg-Trace); RBC,Urine 0-3 per hpf (0-3); Specific Gravity,Urine 1.014 (1.010-1.025); Squamous Epithelial Cell,Urine Few per hpf (None-Few); Urobilinogen,Urine Normal (Normal); WBC,Urine 15-30 per hpf (0-3)
[2022-03-28 09:28] LABS: Cholesterol,Body Fluid 15 mg/dL; Triglycerides,Body Fluid <9 mg/dL
[2022-03-28] MEDS: Sacubitril/Valsartan 24/26 MG 1 TABLET PO SCH ×2 (09:33→21:58)
[2022-03-28] MEDS: *HR* Ticagrelor 90 MG TABLET PO SCH ×2 (09:33→21:58)
[2022-03-28] MEDS: Bumetanide 1 MG TABLET PO SCH ×2 (09:33→16:52)
[2022-03-28] MEDS: Aspirin 81 MG TAB.CHEW PO SCH (09:34)
[2022-03-28] MEDS: Metoprolol XL (24 HR) Succ 50 MG TAB.ER.24H PO SCH ×2 (09:34→21:58)
[2022-03-28] MEDS ORDERED: Bumetanide 1 MG TABLET PO SCH (09:36)
[2022-03-28] MEDS: Insulin DETEMIR 100 UNIT/ML X5UNITS SUBQ SCH (09:36)
[2022-03-28] MEDS ORDERED: Bumetanide 1 MG TABLET PO ONE (10:39)
[2022-03-28] MEDS ORDERED: Levalbuterol Neb 1.25 MG/3 ML IH ONE (11:33)
[2022-03-28] MEDS: *HR* Digoxin 0.125 MG TABLET PO SCH (14:52)
[2022-03-28] MEDS ORDERED: Sennosides/Docusate Sodium TABLET PO PRN (16:45)
[2022-03-29 01:59] LABS: Hematocrit 26.2 % (35.3-44.9); Hemoglobin 7.9 g/dL (11.5-15.4); Mean Corpuscular HGB Conc 30.2 g/dL (31.6-35.5); Mean Corpuscular Hemoglobin 24.4 pg (28.0-33.3); Mean Corpuscular Volume 80.9 fL (83.0-100.0); Mean Platelet Volume 9.4 fL (9.4-12.4); Platelet Count 405 K/mcL (140-400); Red Blood Count 3.24 M/mcL (3.82-4.97); Red Cell Distribution Width 17.3 % (11.5-14.5); White Blood Count 10.3 K/mcL (4.3-11.1)
[2022-03-29 02:16] LABS: Calcium 9.3 mg/dL (8.6-10.3); Potassium 4.1 mEq/L (3.5-5.1)
[2022-03-29 03:41] VITALS: TEMP 97.7
[2022-03-29] MEDS: *HR* Heparin 5,000 UNIT/ML VIAL SQ SCH (06:17)
[2022-03-29 08:10] VITALS: BP 117/67; PULSE 116; O2SAT 97
[2022-03-29] MEDS ORDERED: *HR* Digoxin 0.125 MG TABLET PO SCH (09:30)
[2022-03-29] MEDS: Bumetanide 1 MG TABLET PO SCH (10:08)
[2022-03-29] MEDS: Sacubitril/Valsartan 24/26 MG 1 TABLET PO SCH (10:08)
[2022-03-29] MEDS: *HR* Ticagrelor 90 MG TABLET PO SCH (10:08)
[2022-03-29] MEDS: Insulin DETEMIR 100 UNIT/ML X5UNITS SUBQ SCH (10:08)
[2022-03-29] MEDS: Aspirin 81 MG TAB.CHEW PO SCH (10:08)
[2022-03-29] MEDS: Metoprolol XL (24 HR) Succ 50 MG TAB.ER.24H PO SCH (10:08)
[2022-03-30] MEDS ORDERED: *HR* Digoxin 0.125 MG TABLET PO SCH (09:00)
== END 2022-03-29 12:06 | disposition hospice, home (50) | DRG 291 ==
LOC: EMEROOARM 08:17 → 3ANU 08:17
PROVIDERS: ADMIT Internal Medicine; ATTEND Internal Medicine

== ENCOUNTER 2022-05-26 23:48 | Inpatient (IN) ==
[2022-05-27 01:01] LABS: Basophils # 0.1 K/mcL (0.0-0.2); Basophils % 0.4 %; Eosinophils # 0.3 K/mcL (0.0-0.6); Eosinophils % 1.8 %; Hematocrit 25.1 % (35.3-44.9); Hemoglobin 7.4 g/dL (11.5-15.4); Immature Granulocytes % 0.6 % (0-4); Lymphocytes # 0.6 K/mcL (0.6-4.6); Lymphocytes % 4.1 %; Mean Corpuscular HGB Conc 29.5 g/dL (31.6-35.5); Mean Corpuscular Hemoglobin 22.7 pg (28.0-33.3); Mean Platelet Volume 10.5 fL (9.4-12.4); Monocytes # 0.7 K/mcL (0.0-1.3); Monocytes % 4.9 %; Neutrophils # 12.5 K/mcL (1.6-8.9); Platelet Count 353 K/mcL (140-400); Red Blood Count 3.26 M/mcL (3.82-4.97); Red Cell Distribution Width 18.6 % (11.5-14.5); Segmented Neutrophils % 88.2 %; White Blood Count 14.2 K/mcL (4.3-11.1)
[2022-05-27 01:16] LABS: Bacteria,Urine Moderate per hpf (None-Few); Bilirubin,Urine Negative (Negative); Blood,Urine Small (Negative); Clarity,Urine Turbid (Clear); Color,Urine Light-Yellow (Yellow); Glucose,Urine (UA) Normal (Normal); Hyaline Casts,Urine Moderate per lpf (None Seen); Ketones,Urine Negative (Negative); Leukocyte Esterase,Urine Large (Negative); Mucus,Urine Few per lpf (None-Few); Nitrite,Urine Negative (Negative); PH,Urine 5.5 pH Units (5.0-8.0); Protein,Urine Trace mg/dL (Neg-Trace); RBC,Urine 0-3 per hpf (0-3); Specific Gravity,Urine 1.012 (1.010-1.025); Squamous Epithelial Cell,Urine Moderate per hpf (None-Few); Urobilinogen,Urine Normal (Normal); WBC,Urine 50-100 per hpf (0-3)
[2022-05-27] MEDS ORDERED: cefTRIAXone 1,000 MG in 0.9 % Sodium Chloride 10 ML IVP ONE (01:26)
[2022-05-27 01:33] LABS: Calcium 9.3 mg/dL (8.6-10.3); Potassium 4.5 mEq/L (3.5-5.1); Troponin I 0.19 ng/mL (< 0.04)
[2022-05-27 01:47] LABS: Influenza A PCR Negative (Negative); Influenza B PCR Negative (Negative); Resp. Syncytial Virus PCR Negative (Negative)
[2022-05-27 01:48] LABS: SARS-CoV-2 by PCR (In House) Negative (Negative)
[2022-05-27] MEDS ORDERED: Ipratropium/Albuterol Neb 3 ML IH ONE (02:22)
[2022-05-27] MEDS ORDERED: Ondansetron 4 MG/2 ML VIAL IVP PRN (03:30)
[2022-05-27] MEDS ORDERED: Naloxone 0.4 MG/ML INJ IVP PRN (03:30)
[2022-05-27] MEDS ORDERED: D5% in Water 1,000 ML IVC PRN (04:54)
[2022-05-27] MEDS ORDERED: *HR* Dextrose 50 % in Water (Syg) 50 ML SYRINGE IVP PRN (04:54)
[2022-05-27] MEDS ORDERED: Dextrose Gel 15 GM/37.5 ML TUBE PO PRN ×2 (04:54)
[2022-05-27] MEDS: *HR* Metoprolol 5 MG/5 ML VIAL IVP PRN ×2 (06:38→13:47)
[2022-05-27 06:42] LABS: Basophils % 0.3 %; Eosinophils # 0.1 K/mcL (0.0-0.6); Eosinophils % 0.7 %; Hematocrit 23.7 % (35.3-44.9); Hemoglobin 6.9 g/dL (11.5-15.4); Immature Granulocytes % 0.3 % (0-4); Lymphocytes # 0.4 K/mcL (0.6-4.6); Lymphocytes % 3.6 %; Mean Corpuscular HGB Conc 29.1 g/dL (31.6-35.5); Mean Corpuscular Hemoglobin 22.3 pg (28.0-33.3); Mean Corpuscular Volume 76.7 fL (83.0-100.0); Mean Platelet Volume 10.6 fL (9.4-12.4); Monocytes # 0.5 K/mcL (0.0-1.3); Monocytes % 4.4 %; Neutrophils # 9.8 K/mcL (1.6-8.9); Platelet Count 305 K/mcL (140-400); Red Blood Count 3.09 M/mcL (3.82-4.97); Red Cell Distribution Width 18.6 % (11.5-14.5); Segmented Neutrophils % 90.7 %; White Blood Count 10.8 K/mcL (4.3-11.1)
[2022-05-27 06:59] LABS: Albumin 3.5 g/dL (3.5-5.7); Bilirubin,Total 0.6 mg/dL (0.3-1.0); Calcium 9.1 mg/dL (8.6-10.3); Globulin 3.5 g/dL (2.4-3.5); Magnesium 1.6 mg/dL (1.6-2.6); Phosphorous 3.7 mg/dL (2.7-4.5); Potassium 4.6 mEq/L (3.5-5.1)
[2022-05-27] MEDS: Levalbuterol Neb 1.25 MG/3 ML IH SCH ×4 (07:22→22:03)
[2022-05-27] MEDS: Metoprolol XL (24 HR) Succ 50 MG TAB.ER.24H PO SCH ×3 (07:26→23:10)
[2022-05-27] MEDS: Bumetanide 1 MG/4 ML VIAL IVP SCH ×2 (07:27→17:22)
[2022-05-27] MEDS ORDERED: Ipratropium/Albuterol Neb 3 ML IH SCH (08:00)
[2022-05-27] MEDS: Insulin LISPRO 300 UNITS/3 ML VIAL SUBQ SCH ×3 (08:55→17:24)
[2022-05-27 11:25] LABS: Hematocrit 24.6 % (35.3-44.9); Hemoglobin 7.3 g/dL (11.5-15.4)
[2022-05-27] MEDS ORDERED: *HR* LORazepam 2 MG/ML VIAL IVP ONE (15:49)
[2022-05-27] MEDS ORDERED: Acetaminophen 325 MG TABLET PO PRN (17:59)
[2022-05-27] MEDS ORDERED: *HR* Digoxin 0.125 MG TABLET PO SCH (18:00)
[2022-05-27] MEDS: Sacubitril/Valsartan 24/26 MG 1 TABLET PO SCH (23:10)
[2022-05-27] MEDS: *HR* Ticagrelor 90 MG TABLET PO SCH (23:10)
[2022-05-27] MEDS: Spironolactone 25 MG TABLET PO SCH (23:10)
[2022-05-28 02:03] LABS: Basophils # 0.1 K/mcL (0.0-0.2); Basophils % 0.5 %; Eosinophils # 0.1 K/mcL (0.0-0.6); Hematocrit 26.5 % (35.3-44.9); Hemoglobin 7.8 g/dL (11.5-15.4); Immature Granulocytes % 0.4 % (0-4); Lymphocytes # 0.6 K/mcL (0.6-4.6); Lymphocytes % 5.3 %; Mean Corpuscular HGB Conc 29.4 g/dL (31.6-35.5); Mean Corpuscular Hemoglobin 22.2 pg (28.0-33.3); Mean Corpuscular Volume 75.5 fL (83.0-100.0); Mean Platelet Volume 10.2 fL (9.4-12.4); Monocytes # 0.4 K/mcL (0.0-1.3); Monocytes % 4.2 %; Neutrophils # 9.4 K/mcL (1.6-8.9); Platelet Count 372 K/mcL (140-400); Red Blood Count 3.51 M/mcL (3.82-4.97); Red Cell Distribution Width 18.3 % (11.5-14.5); Segmented Neutrophils % 88.6 %; White Blood Count 10.6 K/mcL (4.3-11.1)
[2022-05-28 04:10] LABS: Calcium 9.7 mg/dL (8.6-10.3); Magnesium 1.7 mg/dL (1.6-2.6); Potassium 4.5 mEq/L (3.5-5.1)
[2022-05-28] MEDS: Levalbuterol Neb 1.25 MG/3 ML IH SCH ×4 (04:19→22:28)
[2022-05-28] MEDS: Bumetanide 1 MG/4 ML VIAL IVP SCH ×2 (08:37→17:20)
[2022-05-28] MEDS: cefTRIAXone 1,000 MG in Water for inj. (sterile) 10 ML IVP SCH (08:38)
[2022-05-28] MEDS: Insulin LISPRO 300 UNITS/3 ML VIAL SUBQ SCH ×3 (08:38→17:20)
[2022-05-28] MEDS: Metoprolol XL (24 HR) Succ 50 MG TAB.ER.24H PO SCH (08:39)
[2022-05-28] MEDS: Spironolactone 25 MG TABLET PO SCH ×2 (08:39→21:06)
[2022-05-28] MEDS: Aspirin 81 MG TAB.CHEW PO SCH (08:39)
[2022-05-28] MEDS: Sacubitril/Valsartan 24/26 MG 1 TABLET PO SCH ×2 (08:39→21:06)
[2022-05-28] MEDS: *HR* Ticagrelor 90 MG TABLET PO SCH ×2 (08:39→21:06)
[2022-05-28] MEDS: *HR* Metoprolol 5 MG/5 ML VIAL IVP PRN ×2 (08:57→19:54)
[2022-05-28] MEDS ORDERED: Metoprolol XL (24 HR) Succ 50 MG TAB.ER.24H PO SCH ×2 (09:00→21:00)
[2022-05-28] MEDS: *HR* LORazepam 0.5 MG TABLET PO PRN ×2 (13:35→19:54)
[2022-05-29] MEDS: *HR* LORazepam 0.5 MG TABLET PO PRN ×2 (01:53→09:25)
[2022-05-29] MEDS: Levalbuterol Neb 1.25 MG/3 ML IH SCH ×3 (03:57→15:21)
[2022-05-29] MEDS ORDERED: Metoprolol XL (24 HR) Succ 50 MG TAB.ER.24H PO SCH (09:00)
[2022-05-29] MEDS: Spironolactone 25 MG TABLET PO SCH (09:25)
[2022-05-29] MEDS: Sacubitril/Valsartan 24/26 MG 1 TABLET PO SCH (09:25)
[2022-05-29] MEDS: Aspirin 81 MG TAB.CHEW PO SCH (09:26)
[2022-05-29] MEDS: *HR* Ticagrelor 90 MG TABLET PO SCH (09:31)
[2022-05-29] MEDS: Bumetanide 1 MG/4 ML VIAL IVP SCH (09:31)
[2022-05-29] MEDS: cefTRIAXone 1,000 MG in Water for inj. (sterile) 10 ML IVP SCH (09:32)
[2022-05-29] MEDS: Insulin LISPRO 300 UNITS/3 ML VIAL SUBQ SCH ×2 (09:33→12:54)
[2022-05-29] MEDS ORDERED: *HR* LORazepam 0.5 MG TABLET PO PRN (10:46)
[2022-05-29] MEDS ORDERED: *HR* HYDROmorphone 2 MG/ML SYRINGE IVP PRN (13:31)
[2022-05-29 14:20] LABS: RBC,Pleural Fluid 24000 RBC/mcL
[2022-05-29 14:50] LABS: Basophils,Pleural Fluid 0 %
[2022-05-29 14:51] LABS: Appearance of Pleural Fl Hazy (Clear)
[2022-05-29 14:55] LABS: Total Protein,Pleural Fluid 2.7 g/dL
[2022-05-29 16:30] VITALS: BP 101/51; PULSE 60; TEMP 97.1; O2SAT 95
== END 2022-05-29 17:56 | disposition hospice, inpatient (51) | DRG 871 ==
LOC: 2ANU 23:48 → EMEROOARM 23:48 → SUATTDRO 05-27 03:28 → 2ANU 05-27 04:15
PROVIDERS: ADMIT Internal Medicine; ATTEND Family Medicine

== ENCOUNTER 2022-05-29 16:16 | Inpatient (IN) ==
[2022-05-29] MEDS ORDERED: Hyoscyamine SL 0.125 MG TAB.SUBL SL PRN (16:30)
[2022-05-29] MEDS ORDERED: Bisacodyl 10 MG RECTAL SUPPOSITORY RC PRN (16:30)
[2022-05-29] MEDS ORDERED: Ondansetron 4 MG/2 ML VIAL IVP PRN (16:30)
[2022-05-29] MEDS ORDERED: Acetaminophen 325 MG TABLET PO PRN (16:30)
[2022-05-29] MEDS ORDERED: *HR* HYDROmorphone 2 MG/ML SYRINGE IVP PRN (16:52)
[2022-05-29] MEDS ORDERED: Levalbuterol Neb 1.25 MG/3 ML IH PRN (16:54)
[2022-05-29] MEDS ORDERED: Glycopyrrolate 0.2 MG/ML VIAL IVP PRN (17:01)
[2022-05-29] MEDS ORDERED: *HR* Metoprolol 5 MG/5 ML VIAL IVP PRN (17:54)
[2022-05-29] MEDS: Bumetanide 1 MG/4 ML VIAL IVP SCH (18:28)
[2022-05-29] MEDS ORDERED: *HR* HYDROmorphone 2 MG/ML SYRINGE IVP SCH (20:00)
[2022-05-29] MEDS: Sacubitril/Valsartan 24/26 MG 1 TABLET PO SCH (20:30)
[2022-05-29] MEDS: *HR* Ticagrelor 90 MG TABLET PO SCH (20:30)
[2022-05-29] MEDS: Spironolactone 25 MG TABLET PO SCH (20:30)
[2022-05-29] MEDS: *HR* LORazepam Oral Conc 2 MG/ML SL PRN (20:31)
[2022-05-29] MEDS: *HR* HYDROmorphone 2 MG/ML SYRINGE IVP SCH (20:31)
[2022-05-30] MEDS: *HR* HYDROmorphone 2 MG/ML SYRINGE IVP SCH ×6 (00:59→20:29)
[2022-05-30] MEDS: Spironolactone 25 MG TABLET PO SCH ×2 (09:01→20:25)
[2022-05-30] MEDS: Sacubitril/Valsartan 24/26 MG 1 TABLET PO SCH ×2 (09:01→20:25)
[2022-05-30] MEDS: *HR* Ticagrelor 90 MG TABLET PO SCH ×2 (09:01→20:25)
[2022-05-30] MEDS: Bumetanide 1 MG/4 ML VIAL IVP SCH ×2 (09:01→16:36)
[2022-05-30] MEDS: *HR* LORazepam 2 MG/ML VIAL IVP PRN (16:18)
[2022-05-30] MEDS: *HR* LORazepam Oral Conc 2 MG/ML SL PRN (20:30)
[2022-05-31] MEDS: *HR* HYDROmorphone 2 MG/ML SYRINGE IVP SCH ×6 (01:36→20:31)
[2022-05-31] MEDS: Spironolactone 25 MG TABLET PO SCH ×2 (09:20→20:33)
[2022-05-31] MEDS: Bumetanide 1 MG/4 ML VIAL IVP SCH ×2 (09:20→17:01)
[2022-05-31] MEDS: Sacubitril/Valsartan 24/26 MG 1 TABLET PO SCH ×2 (09:21→20:33)
[2022-05-31] MEDS: *HR* Ticagrelor 90 MG TABLET PO SCH ×2 (09:21→20:33)
[2022-05-31] MEDS: *HR* LORazepam 2 MG/ML VIAL IVP PRN (20:34)
[2022-05-31] MEDS: Lacri-Lube 3.5 GM TUBE RIGHT EYE SCH (22:46)
[2022-06-01] MEDS: *HR* HYDROmorphone 2 MG/ML SYRINGE IVP SCH ×2 (00:36→04:49)
[2022-06-01] MEDS: *HR* Ticagrelor 90 MG TABLET PO SCH ×2 (08:41→20:18)
[2022-06-01] MEDS: Spironolactone 25 MG TABLET PO SCH ×2 (08:41→20:18)
[2022-06-01] MEDS: Sacubitril/Valsartan 24/26 MG 1 TABLET PO SCH ×2 (08:41→20:18)
[2022-06-01] MEDS: *HR* OxyCODONE Immed Rel 5 MG TABLET PO SCH ×3 (08:42→20:18)
[2022-06-01] MEDS: Bumetanide 1 MG/4 ML VIAL IVP SCH ×2 (08:43→16:03)
[2022-06-01] MEDS: Lacri-Lube 3.5 GM TUBE RIGHT EYE SCH ×2 (08:47→20:19)
[2022-06-01] MEDS: *HR* LORazepam Oral Conc 2 MG/ML SL PRN (13:50)
[2022-06-01 16:07] LABS: Calcium 9.1 mg/dL (8.6-10.3); Potassium 4.1 mEq/L (3.5-5.1)
[2022-06-02] MEDS: Bumetanide 1 MG/4 ML VIAL IVP SCH (08:33)
[2022-06-02] MEDS: *HR* OxyCODONE Immed Rel 5 MG TABLET PO SCH ×3 (08:34→20:52)
[2022-06-02] MEDS: Spironolactone 25 MG TABLET PO SCH ×2 (08:34→20:53)
[2022-06-02] MEDS: Sacubitril/Valsartan 24/26 MG 1 TABLET PO SCH ×2 (08:35→20:53)
[2022-06-02] MEDS: *HR* Ticagrelor 90 MG TABLET PO SCH ×2 (08:35→20:53)
[2022-06-02] MEDS: Lacri-Lube 3.5 GM TUBE RIGHT EYE SCH ×2 (08:36→20:54)
[2022-06-02] MEDS: *HR* LORazepam 2 MG/ML VIAL IVP PRN (10:10)
[2022-06-02] MEDS: Bumetanide 1 MG TABLET PO SCH (17:08)
[2022-06-03] MEDS: Spironolactone 25 MG TABLET PO SCH ×2 (08:46→20:28)
[2022-06-03] MEDS: Sacubitril/Valsartan 24/26 MG 1 TABLET PO SCH ×2 (08:46→20:29)
[2022-06-03] MEDS: *HR* Ticagrelor 90 MG TABLET PO SCH ×2 (08:46→20:28)
[2022-06-03] MEDS: *HR* OxyCODONE Immed Rel 5 MG TABLET PO SCH ×3 (08:46→20:29)
[2022-06-03] MEDS: Bumetanide 1 MG TABLET PO SCH ×2 (08:46→18:25)
[2022-06-03] MEDS: Lacri-Lube 3.5 GM TUBE RIGHT EYE SCH ×2 (08:47→20:28)
[2022-06-03] MEDS: *HR* LORazepam Oral Conc 2 MG/ML SL PRN (18:25)
[2022-06-04] MEDS: Bumetanide 1 MG TABLET PO SCH ×2 (08:42→17:24)
[2022-06-04] MEDS: Lacri-Lube 3.5 GM TUBE RIGHT EYE SCH ×2 (08:43→21:16)
[2022-06-04] MEDS: *HR* OxyCODONE Immed Rel 5 MG TABLET PO SCH ×3 (08:43→21:15)
[2022-06-04] MEDS: *HR* Ticagrelor 90 MG TABLET PO SCH ×2 (08:43→21:16)
[2022-06-04] MEDS: Sacubitril/Valsartan 24/26 MG 1 TABLET PO SCH ×2 (08:43→21:16)
[2022-06-04] MEDS: Spironolactone 25 MG TABLET PO SCH ×2 (08:43→21:15)
[2022-06-04] MEDS: *HR* LORazepam Oral Conc 2 MG/ML SL PRN (17:24)
[2022-06-04] MEDS: *HR* HYDROmorphone 2 MG/ML SYRINGE IVP SCH (23:07)
[2022-06-05] MEDS: Sacubitril/Valsartan 24/26 MG 1 TABLET PO SCH ×2 (10:17→21:45)
[2022-06-05] MEDS: Spironolactone 25 MG TABLET PO SCH ×2 (10:17→21:45)
[2022-06-05] MEDS: *HR* OxyCODONE Immed Rel 5 MG TABLET PO SCH ×3 (10:18→21:45)
[2022-06-05] MEDS: *HR* Ticagrelor 90 MG TABLET PO SCH ×2 (10:18→21:45)
[2022-06-05] MEDS: Lacri-Lube 3.5 GM TUBE RIGHT EYE SCH ×2 (10:19→21:46)
[2022-06-05] MEDS: Bumetanide 1 MG TABLET PO SCH ×2 (10:26→16:32)
[2022-06-05] MEDS ORDERED: Simethicone 80 MG TAB.CHEW PO PRN (12:18)
[2022-06-06] MEDS: *HR* Ticagrelor 90 MG TABLET PO SCH ×2 (08:33→19:52)
[2022-06-06] MEDS: Sacubitril/Valsartan 24/26 MG 1 TABLET PO SCH ×2 (08:34→19:52)
[2022-06-06] MEDS: *HR* OxyCODONE Immed Rel 5 MG TABLET PO SCH ×3 (08:34→19:52)
[2022-06-06] MEDS: Bumetanide 1 MG TABLET PO SCH ×2 (08:35→18:08)
[2022-06-06] MEDS: Spironolactone 25 MG TABLET PO SCH ×2 (08:35→19:53)
[2022-06-06] MEDS: Lacri-Lube 3.5 GM TUBE RIGHT EYE SCH ×2 (08:36→19:54)
[2022-06-06] MEDS ORDERED: Flu Vac QV 22-23 (6MOS UP)/PF 0.5 ML SYRINGE IM ONE (16:37)
[2022-06-07 05:13] VITALS: BP 107/62; PULSE 107; TEMP 97.7; O2SAT 99
[2022-06-07] MEDS: Sacubitril/Valsartan 24/26 MG 1 TABLET PO SCH (09:11)
[2022-06-07] MEDS: Lacri-Lube 3.5 GM TUBE RIGHT EYE SCH (09:11)
[2022-06-07] MEDS: Bumetanide 1 MG TABLET PO SCH (09:11)
[2022-06-07] MEDS: *HR* OxyCODONE Immed Rel 5 MG TABLET PO SCH (09:11)
[2022-06-07] MEDS: *HR* Ticagrelor 90 MG TABLET PO SCH (09:11)
[2022-06-07] MEDS: Spironolactone 25 MG TABLET PO SCH (09:11)
== END 2022-06-07 13:47 | disposition hospice, home (50) | DRG 951 ==
LOC: 2ANU 17:58
PROVIDERS: ADMIT Internal Medicine Hospice and Palliative Medicine; ATTEND Internal Medicine Hospice and Palliative Medicine